=== PATIENT | female | born 1950 | race Caucasian/White ===

== ENCOUNTER 2018-10-29 03:15 | Emergency (ER) | payer MEDICARE ==
--- NOTE | 2018-10-29 04:02 | XR ---
EXAM: XR Chest, 2 Views CLINICAL HISTORY: ITS.REASON XR Reason: Pain TECHNIQUE: Frontal and lateral views of the chest. COMPARISON: No relevant prior studies available. FINDINGS: Lungs: Small opacity in the left lower lobe. Pleural space: No effusion. Heart: No cardiomegaly. Mediastinum: Unremarkable. Bones/joints: No acute findings. IMPRESSION: Small opacity in the left lower lobe, possibly aspiration or atelectasis.
[2018-10-29] MEDS ORDERED: cefTRIAXone 1,000 MG VIAL (IM USE) IM STA (04:18)
[2018-10-29] MEDS ORDERED: ALBUTEROL NEBULIZED 2.5 MG/3 ML INHALATION STA (04:23)
--- NOTE | 2018-10-29 04:23 | ED ---
URI HPI - General Chief Complaint: Upper Respiratory Infection Stated Complaint: Cough/URI Time Seen by Provider: 10/29/18 03:39 Source: patient, family Mode of arrival: wheelchair Limitations: no limitations - History of Present Illness MD Complaint: fever, cough, nasal congestion Onset/Timin -: days(s) Severity: moderate Consistency: constant Improves With: nothing Treatments Prior to Arrival: "cold medicine", antibiotics - Related Data Previous Rx's Medication Instructions Recorded Amoxicillin 875 mg PO Q12HR #14 tablet 10/29/18 Allergies Allergy/AdvReac Type Severity Reaction Status Date / Time No Known Allergies Allergy Verified 10/29/18 03:27 Review of Systems ROS Statement: Those systems with pertinent positive or pertinent negative responses have been documented in the HPI. ROS Other: All systems not noted in ROS Statement are negative. Constitutional: Reports: fever. Denies: chills Respiratory: Reports: cough, wheezes. Denies: dyspnea, hemoptysis Cardiovascular: Denies: chest pain, palpitations, syncope Gastrointestinal: Denies: abdominal pain, vomiting, diarrhea Genitourinary: Denies: dysuria, hematuria Musculoskeletal: Denies: back pain Skin: Denies: rash Neurological: Denies: headache, weakness Past Medical History Past Medical History: No Reported History, Cancer Additional Past Medical History / Comment(s): uterine CA 2006 History of Any Multi-Drug Resistant Organisms: None Reported Past Surgical History: Cholecystectomy, Hernia Repair, Hysterectomy Smoking Status: Never smoker Past Alcohol Use History: Occasional Past Drug Use History: None Reported General Exam Limitations: no limitations General appearance: alert, in no apparent distress Head exam: Present: atraumatic, normocephalic Eye exam: Present: normal appearance. Absent: scleral icterus, conjunctival injection ENT exam: Present: normal oropharynx Respiratory exam: Present: normal lung sounds bilaterally, wheezes. Absent: respiratory distress, rales, rhonchi, stridor Cardiovascular Exam: Present: regular rate, normal rhythm, normal heart sounds. Absent: systolic murmur, diastolic murmur, rubs, gallop GI/Abdominal exam: Present: soft. Absent: distended, tenderness, guarding, rebound, rigid Extremities exam: Present: normal inspection, normal capillary refill. Absent: pedal edema, calf tenderness Neurological exam: Present: alert Skin exam: Present: warm, dry, intact, normal color. Absent: rash Course Vital Signs 10/29/18 10/29/18 10/29/18 03:20 03:38 04:33 Temperature 101.3 F H Pulse Rate 78 73 Respiratory 18 20 16 Rate Blood Pressure 141/78 O2 Sat by Pulse 97 Oximetry 10/29/18 10/29/18 04:40 05:52 Temperature 99.9 F H Pulse Rate 75 68 Respiratory 16 19 Rate Blood Pressure 134/60 O2 Sat by Pulse 95 Oximetry Disposition Clinical Impression: Pneumonia Disposition: HOME SELF-CARE Condition: Fair Instructions (If sedation given, give patient instructions): Pneumonia (ED) Prescriptions: Amoxicillin 875 mg PO Q12HR #14 tablet Is patient prescribed a controlled substance at d/c from ED?: No Referrals: Dank Damon MD [Primary Care Provider] - 1-2 days
[2018-10-29] MEDS ORDERED: ACETAMINOPHEN TAB 325 MG TAB PO STA (04:28)
[2018-10-29] MEDS ORDERED: IBUPROFEN 600 MG TAB PO STA (04:29)
[2018-10-29 05:52] VITALS: BP 134/60; PULSE 68; RESP 19; TEMP 99.9
== END 2018-10-29 07:01 | disposition home or self-care (01) ==
LOC: EC 03:15
DX: J18.9 Pneumonia, unspecified organism (principal); Z85.42 Personal history of malignant neoplasm of other parts of uterus
CPT/HCPCS: 94640; 71046; 99283; 96372; J0696

== ENCOUNTER 2019-04-02 12:44 | Inpatient (IN) | payer MEDICARE ==
[2019-04-02] MEDS ORDERED: SODIUM CHLORIDE 0.9% 1,000 ML IV STA (13:28)
[2019-04-02] MEDS ORDERED: KETOROLAC 30 MG/ML 1 ML VIAL IVP STA (13:39)
[2019-04-02 13:58] LABS: Basophils # (A) 0.1 k/uL (0-0.2); Basophils % (A) 0 %; Eosinophils # (A) 0.2 k/uL (0-0.7); Eosinophils % (A) 1 %; HGB 14.6 gm/dL (11.4-16.0); Lymphocytes # (A) 1.2 k/uL (1.0-4.8); Lymphocytes % (A) 7 %; MCH 33.1 pg (25.0-35.0); MCHC 33.1 g/dL (31.0-37.0); MCV 99.9 fL (80.0-100.0); Mean Platelet Volume 6.4; Monocytes # (A) 0.5 k/uL (0-1.0); Monocytes % (A) 3 %; Neutrophils # (A) 14.1 k/uL (1.3-7.7); Neutrophils % (A) 88 %; Platelet Count 293 k/uL (150-450); RBC 4.41 m/uL (3.80-5.40); WBC 16.1 k/uL (3.8-10.6)
[2019-04-02 14:00] LABS: Appearance,Urine Cloudy (Clear); Bacteria,Urine Occasional /hpf; Bilirubin,Urine Negative (Negative); Blood,Urine Negative (Negative); Color,Urine Yellow; Glucose,Urine (UA) Negative (Negative); Ketones,Urine Negative (Negative); Leukocyte Esterase,Urine Negative (Negative); Mucus,Urine Rare /hpf; Nitrite,Urine Negative (Negative); PH, Urine 6.5 (5.0-8.0); Protein,Urine Negative (Negative); Specific Gravity,Urine 1.017 (1.001-1.035); Squamous Epithelial Cell,Urine 1 /hpf (0-4); Urobilinogen,Urine <2.0 mg/dL (<2.0)
--- NOTE | 2019-04-02 14:01 | ED ---
Abdominal Pain HPI - General Chief Complaint: Abdominal Pain Stated Complaint: Side pain Time Seen by Provider: 04/02/19 13:11 Source: patient, RN notes reviewed Mode of arrival: ambulatory Limitations: no limitations - History of Present Illness Initial Comments: This is a 60-year-old female presents emergency Department chief complaint of abdominal pain. Patient states his started around midnight last night. Patient states pain is progressively is on her right side of her abdomen. Patient denies that she had a fever though she has a temporal 100.3 in emergency department. Patient states that she's had a prior cholecystectomy, hysterectomy and hernia repair with mesh. Patient denies any flank pain or dysuria no hematuria denies any diarrhea or constipation issues denies chest pain, shortness breath, URI symptoms - Related Data Previous Rx's Medication Instructions Recorded Amoxicillin 875 mg PO Q12HR #14 tablet 10/29/18 Allergies Allergy/AdvReac Type Severity Reaction Status Date / Time No Known Allergies Allergy Verified 04/02/19 13:03 Review of Systems ROS Statement: Those systems with pertinent positive or pertinent negative responses have been documented in the HPI. ROS Other: All systems not noted in ROS Statement are negative. Past Medical History Past Medical History: No Reported History, Cancer Additional Past Medical History / Comment(s): uterine CA 2006 History of Any Multi-Drug Resistant Organisms: None Reported Past Surgical History: Cholecystectomy, Hernia Repair, Hysterectomy Smoking Status: Never smoker Past Alcohol Use History: Occasional Past Drug Use History: None Reported General Exam Limitations: no limitations General appearance: alert, in no apparent distress Head exam: Present: atraumatic, normocephalic, normal inspection Eye exam: Present: normal appearance, PERRL, EOMI. Absent: scleral icterus, conjunctival injection, periorbital swelling ENT exam: Present: normal exam, normal oropharynx, mucous membranes moist Neck exam: Present: normal inspection, full ROM. Absent: tenderness, meningismus, lymphadenopathy Respiratory exam: Present: normal lung sounds bilaterally. Absent: respiratory distress, wheezes, rales, rhonchi, stridor Cardiovascular Exam: Present: regular rate, normal rhythm, normal heart sounds. Absent: systolic murmur, diastolic murmur, rubs, gallop, clicks GI/Abdominal exam: Present: soft, tenderness (Moderate right-sided), normal bowel sounds. Absent: distended, guarding, rebound, rigid Back exam: Absent: CVA tenderness (R), CVA tenderness (L) Neurological exam: Present: alert, oriented X3 Skin exam: Present: warm, dry, intact, normal color. Absent: rash Course Vital Signs 04/02/19 13:07 Temperature 100.3 F H Pulse Rate 84 Respiratory 16 Rate Blood Pressure 156/85 O2 Sat by Pulse 98 Oximetry Medical Decision Making - Medical Decision Making CT shows evidence of diverticulitis in the hepatic flexure. Patient has a fever, leukocytosis. Patient will be admitted for diverticulitis possible sepsis. Patient will be placed on Levaquin and Flagyl. He is discussed with Dr. Corey admitting physician. - Lab Data Result diagrams: 04/02/19 13:45 04/02/19 13:45 Lab Results 04/02/19 04/02/19 04/02/19 Range/Units 13:45 13:45 13:45 WBC 16.1 H (3.8-10.6) k/uL RBC 4.41 (3.80-5.40) m/uL Hgb 14.6 (11.4-16.0) gm/dL Hct 44.0 (34.0-46.0) % MCV 99.9 (80.0-100.0) fL MCH 33.1 (25.0-35.0) pg MCHC 33.1 (31.0-37.0) g/dL RDW 13.0 (11.5-15.5) % Plt Count 293 (150-450) k/uL Neutrophils % 88 % Lymphocytes % 7 % Monocytes % 3 % Eosinophils % 1 % Basophils % 0 % Neutrophils # 14.1 H (1.3-7.7) k/uL Lymphocytes # 1.2 (1.0-4.8) k/uL Monocytes # 0.5 (0-1.0) k/uL Eosinophils # 0.2 (0-0.7) k/uL Basophils # 0.1 (0-0.2) k/uL Sodium 136 L (137-145) mmol/L Potassium 4.0 (3.5-5.1) mmol/L Chloride 101 (98-107) mmol/L Carbon Dioxide 27 (22-30) mmol/L Anion Gap 8 mmol/L BUN 11 (7-17) mg/dL Creatinine 0.68 (0.52-1.04) mg/dL Est GFR (CKD-EPI)AfAm >90 (>60 ml/min/1.73 sqM) Est GFR (CKD-EPI)NonAf >90 (>60 ml/min/1.73 sqM) Glucose 135 H (74-99) mg/dL Plasma Lactic Acid Sherif 1.3 (0.7-2.0) mmol/L Calcium 9.4 (8.4-10.2) mg/dL Total Bilirubin 1.3 (0.2-1.3) mg/dL AST 26 (14-36) U/L ALT 31 (9-52) U/L Alkaline Phosphatase 88 (38-126) U/L Total Protein 7.4 (6.3-8.2) g/dL Albumin 3.9 (3.5-5.0) g/dL Amylase 33 (30-110) U/L Lipase 63 (23-300) U/L Urine Color Urine Appearance (Clear) Urine pH (5.0-8.0) Ur Specific [place] (1.001-1.035) Urine Protein (Negative) Urine Glucose (UA) (Negative) Urine Ketones (Negative) Urine Blood (Negative) Urine Nitrite (Negative) Urine Bilirubin (Negative) Urine Urobilinogen (<2.0) mg/dL Ur Leukocyte Esterase (Negative) Urine WBC (0-5) /hpf Ur Squamous Epith Cells (0-4) /hpf Urine Bacteria (None) /hpf Urine Mucus (None) /hpf 04/02/19 Range/Units 13:45 WBC (3.8-10.6) k/uL RBC (3.80-5.40) m/uL Hgb (11.4-16.0) gm/dL Hct (34.0-46.0) % MCV (80.0-100.0) fL MCH (25.0-35.0) pg MCHC (31.0-37.0) g/dL RDW (11.5-15.5) % Plt Count (150-450) k/uL Neutrophils % % Lymphocytes % % Monocytes % % Eosinophils % % Basophils % % Neutrophils # (1.3-7.7) k/uL Lymphocytes # (1.0-4.8) k/uL Monocytes # (0-1.0) k/uL Eosinophils # (0-0.7) k/uL Basophils # (0-0.2) k/uL Sodium (137-145) mmol/L Potassium (3.5-5.1) mmol/L Chloride (98-107) mmol/L Carbon Dioxide (22-30) mmol/L Anion Gap mmol/L BUN (7-17) mg/dL Creatinine (0.52-1.04) mg/dL Est GFR (CKD-EPI)AfAm (>60 ml/min/1.73 sqM) Est GFR (CKD-EPI)NonAf (>60 ml/min/1.73 sqM) Glucose (74-99) mg/dL Plasma Lactic Acid Sherif (0.7-2.0) mmol/L Calcium (8.4-10.2) mg/dL Total Bilirubin (0.2-1.3) mg/dL AST (14-36) U/L ALT (9-52) U/L Alkaline Phosphatase (38-126) U/L Total Protein (6.3-8.2) g/dL Albumin (3.5-5.0) g/dL Amylase (30-110) U/L Lipase (23-300) U/L Urine Color Yellow Urine Appearance Cloudy H (Clear) Urine pH 6.5 (5.0-8.0) Ur Specific [place] 1.017 (1.001-1.035) Urine Protein Negative (Negative) Urine Glucose (UA) Negative (Negative) Urine Ketones Negative (Negative) Urine Blood Negative (Negative) Urine Nitrite Negative (Negative) Urine Bilirubin Negative (Negative) Urine Urobilinogen <2.0 (<2.0) mg/dL Ur Leukocyte Esterase Negative (Negative) Urine WBC 3 (0-5) /hpf Ur Squamous Epith Cells 1 (0-4) /hpf Urine Bacteria Occasional H (None) /hpf Urine Mucus Rare H (None) /hpf Disposition Clinical Impression: Acute diverticulitis Disposition: ADMITTED IP TO THIS [facility] Condition: Fair Referrals: Dank Damon MD [Primary Care Provider] - 1-2 days
[2019-04-02 14:08] LABS: ALT 31 U/L (9-52); AST 26 U/L (14-36); African American GFR (CKD) >90 (>60 ml/min/1.73 sqM); Albumin 3.9 g/dL (3.5-5.0); Alkaline Phosphatase 88 U/L (38-126); Amylase 33 U/L (30-110); Anion Gap 8 mmol/L; Blood Urea Nitrogen 11 mg/dL (7-17); Calcium 9.4 mg/dL (8.4-10.2); Carbon Dioxide 27 mmol/L (22-30); Chloride 101 mmol/L (98-107); Glucose 135 mg/dL (74-99); Sodium 136 mmol/L (137-145); Total Bilirubin 1.3 mg/dL (0.2-1.3); Total Protein 7.4 g/dL (6.3-8.2)
--- NOTE | 2019-04-02 15:04 | CT ---
EXAMINATION TYPE: CT abdomen pelvis w con DATE OF EXAM: 04/02/2019 COMPARISON: None HISTORY: RLQ pain with nausea and fever. CT DLP: 2996.7 mGycm Automated exposure control for dose reduction was used. TECHNIQUE: Helical acquisition of images was performed from the lung bases through the pelvis. CONTRAST: Performed without Oral Contrast and with IV Contrast, patient injected with 100 mL of Isovue 300. FINDINGS: Lung bases are clear of consolidation. There is minimal subsegmental atelectasis at the left lung bas e. There is no pleural effusion. There is some fatty infiltration of the liver. There is calcification that measures 1.5 cm superior r ight lobe of the liver that could be a granuloma. Spleen is intact. Stomach is intact. There is no ev idence of pancreatic mass. There are clips from cholecystectomy. There is no adrenal mass. Kidneys have normal size and contour. There is no hydronephrosis. Ureters a re not dilated. Bladder distends smoothly. There is moderate fat stranding in the right upper quadrant at the hepatic flexure of the colon. Ther e are numerous diverticula throughout the colon including the hepatic flexure. The terminal ileum appears normal. Appendix is not definitely seen. There is no sign of thickened vamshi endix. There is no evidence of free air. There is no free fluid in the pelvis. Lumbar spine is intact. Bony pelvis appears intact. IMPRESSION: MODERATE INFLAMMATORY CHANGES IN THE RIGHT UPPER QUADRANT AT THE HEPATIC FLEXURE CONSISTENT WITH DIVE RTICULITIS. Appendix not seen.
[2019-04-02] MEDS ORDERED: NALOXONE 0.4 MG/ML 1 ML VIAL IV PRN (15:36)
[2019-04-02] MEDS ORDERED: ONDANSETRON 4 MG/2 ML VIAL IVP PRN (15:36)
[2019-04-02] MEDS ORDERED: LEVOFLOXACIN 750MG-D5W PMX 750 MG in DEXTROSE/WATER 1 150ML.BAG IVPB STA (15:37)
[2019-04-02] MEDS ORDERED: metroNIDAZOLE-NS PMX 500 MG in SALINE 1 100ML.BAG IVPB STA (15:37)
[2019-04-02] MEDS: HYDROcodone/APAP 5-325MG 1 EACH TAB PO PRN (16:37)
[2019-04-02] MEDS: SODIUM CHLORIDE 0.9% 1,000 ML IV SCH (19:40)
[2019-04-02] MEDS: KETOROLAC 30 MG/ML 1 ML VIAL IVP PRN (19:42)
--- NOTE | 2019-04-02 21:20 | P.HPIM ---
History of Present Illness H&P Date: 04/02/19 Chief Complaint: Abdominal pain History of presenting complaint: This is a very pleasant 68-year-old patient who follows with Dr. Renae. She is otherwise remarkably good health. Last night she had gone to the bathroom then started noticing some right-sided abdominal pain. She slowly progressed to get much worse. Does some nausea and some chills present. She is not sure if there was any fever. Patient normally is to 3 bowel movements a day. Patient continued to get worse and the surgical complaint ear. Computed tomography scan did show hepatic flexure diverticulitis. Admitted for the same. Has not had any endoscopy previously. Review of systems: GEN.: Tired with chills EYES: None HEENT: None NECK: None RESPIRATORY: None CARDIOVASCULAR: None GASTROINTESTINAL: As above GENITOURINARY: None MUSCULOSKELETAL: None LYMPHATICS: None HEMATOLOGICAL: None PSYCHIATRY: None NEUROLOGICAL: None Social history: Does not smoke. Alcohol occasionally. Lives with fianc. 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 Physical examination: VITAL SIGNS: 100.3, 84, 16, 156/85, 98% room GENERAL: BMI 15), laying in bed not in distress. EYES: Pupils equal. Conjunctiva normal. HEENT: External appearance of nose and ears normal, oral cavity grossly normal. NECK: JVD not raised; masses not palpable. HEART: First and second heart sounds are normal; no edema. LUNGS: Respiratory rate normal; distant breath sounds. ABDOMEN: Soft, right-sided tenderness. No guarding [place], liver spleen not palpable, no masses palpable. PSYCH: Alert and oriented x3; mood and affect normal. NEUROLOGICAL: Cranial nerves grossly intact; no facial asymmetry, power and sensation grossly intact. LYMPHATICS: No lymph nodes palpable in the axilla and neck INVESTIGATIONS, reviewed in the clinical context: Computed tomography scan of the abdomen-fatty infiltration of liver, moderate fat stranding in the right upper quadrant of the hepatic flexure of the colon, numerous diverticula throughout the colon Assessment: -Acute diverticulitis in the hepatic flexure -Diffuse colonic diverticulosis -Morbid obesity BMI 59.9 Plan: Patient started on IV Flagyl. We'll set IV cefepime. Lovenox for DVT prophylaxis. IV fluids. Patient allowed ice chips. General surgery was consulted. Care was discussed with the patient question were answered. Past Medical History Past Medical History: No Reported History, Cancer Additional Past Medical History / Comment(s): Uterine CA 2005, broke left leg and has a plate in it in 1994 History of Any Multi-Drug Resistant Organisms: None Reported Past Surgical History: Cholecystectomy, Hernia Repair, Hysterectomy, Orthopedic Surgery Additional Past Surgical History / Comment(s): Left lower leg surgery with metal plate Past Anesthesia/Blood Transfusion Reactions: No Reported Reaction Past Psychological History: No Psychological Hx Reported Additional Psychological History / Comment(s): Patient lives with floyd, lives in own home in [facility]. No stairs. Has no pets. Smoking Status: Never smoker Past Alcohol Use History: Occasional Additional Past Alcohol Use History / Comment(s): Once a month Past Drug Use History: None Reported - Past Family History Mother History Unknown: Yes Additional Family Medical History / Comment(s): Asthma, bladder disease Medications and Allergies Home Medications Medication Instructions Recorded Confirmed Type Naproxen Sodium [Aleve] 440 mg PO Q12H PRN 04/02/19 04/02/19 History Allergies Allergy/AdvReac Type Severity Reaction Status Date / Time No Known Allergies Allergy Verified 04/02/19 15:59 Physical Exam Vitals: Vital Signs Temp Pulse Pulse Resp BP BP Pulse Ox 04/02/19 19:47 98.0 F 71 19 128/59 97 04/02/19 18:57 99.3 F 71 17 126/74 100 04/02/19 17:58 98.8 F 76 16 137/57 97 04/02/19 15:10 98.9 F 89 18 127/89 96 04/02/19 13:07 100.3 F H 84 16 156/85 98 Intake and Output 04/02/19 04/02/19 04/02/19 06:59 14:59 22:59 Other: Weight 153.314 kg Results CBC & Chem 7: 04/02/19 13:45 04/02/19 13:45 Labs: Abnormal Lab Results - Last 24 Hours (Table) 04/02/19 04/02/19 04/02/19 Range/Units 13:45 13:45 13:45 WBC 16.1 H (3.8-10.6) k/uL Neutrophils # 14.1 H (1.3-7.7) k/uL Sodium 136 L (137-145) mmol/L Glucose 135 H (74-99) mg/dL Urine Appearance Cloudy H (Clear) Urine Bacteria Occasional H (None) /hpf Urine Mucus Rare H (None) /hpf Thrombosis Risk Factor Assmnt - Choose All That Apply Each Factor Represents 1 point: Obesity (BMI >25), Swollen legs (current) Each Risk Factor Represents 2 Points: Age 61-74 years Other congenital or acquired thrombophilia - If yes, enter type in comment: No Thrombosis Risk Factor Assessment Total Risk Factor Score: 4 Thrombosis Risk Factor Assessment Level: Moderate Risk
[2019-04-02] MEDS: ENOXAPARIN 40 MG/0.4 ML SYRINGE SQ SCH (21:48)
[2019-04-03] MEDS: metroNIDAZOLE-NS PMX 500 MG in SALINE 1 100ML.BAG IVPB SCH ×4 (01:29→23:26)
[2019-04-03] MEDS: SODIUM CHLORIDE 0.9% 1,000 ML IV SCH ×2 (04:34→07:38)
[2019-04-03] MEDS: HYDROcodone/APAP 5-325MG 1 EACH TAB PO PRN (05:54)
[2019-04-03] MEDS: ENOXAPARIN 40 MG/0.4 ML SYRINGE SQ SCH (07:37)
[2019-04-03] MEDS ORDERED: CEFEPIME 2 GM in SODIUM CHLORIDE 0.9% 100 ML IVPB SCH (09:00)
--- NOTE | 2019-04-03 10:32 | P.GSCN ---
<Ayesha Linares A - Last Filed: 04/03/19 10:29> History of Present Illness Consult date: 04/03/19 Reason for Consult: Diverticulitis Requesting physician: Charles Petersen History of present illness: CHIEF COMPLAINT: Abdominal pain HISTORY OF PRESENT ILLNESS: 60-year-old female who presented to the emergency room with a chief complaint of abdominal pain. She reports right upper quadrant abdominal pain over the last 1-2 days prior to coming to the hospital. She reports pain was located in the right upper quadrant. She denies having this type of pain before. She denies previous history of diverticulitis. She does have a family history of diverticulitis as her father underwent surgery and required a colostomy. PAST MEDICAL HISTORY: See list. PAST SURGICAL HISTORY: See list. MEDICATIONS: See list. ALLERGIES: See list. SOCIAL HISTORY: No illicit drug use. REVIEW OF SYSTEMS: CONSTITUTIONAL: Denies fever or chills. HEENT: Denies blurred vision, vision changes, or eye pain. Denies hemoptysis ENDOCRINE: Denies heat or cold intolerance. CARDIOVASCULAR: Denies chest pain or pressure. RESPIRATORY: No shortness of breath. GASTROINTESTINAL: See HPI for pertinent findings NEURO: Denies history of seizures. PSYCH: No depression or suicidal ideation HEMATOLOGIC: Denies bleeding disorders. LYMPHATIC: The patient denies any lumps and bumps around the neck. GENITOURINARY: Denies any blood in urine or increased urinary frequency. MUSCULOSKELETAL: Denies myalgias. Denies joint swelling. Denies decreased range of motion beyond patients baseline. SKIN: Denies pruitis. Denies rash. PHYSICAL EXAM: VITAL SIGNS: Reviewed GENERAL: Well-developed in no acute distress. HEENT: No sclera icterus. Extraocular movements grossly intact. Moist buccal mucosa. Head is atraumatic, normocephalic. Hears conversational speech. No nasal drain age. NECK: Supple without lymphadenopathy. CHEST: Non-labored respirations and equal bilateral excursions. CARDIOVASCULAR: Regular rate with regular rhythm. Palpable 2+ radial pulses. ABDOMEN: Obese. Soft. Nondistended. Nontender. Positive bowel sounds. No peritoneal signs. MUSCULOSKELETAL: No clubbing, cyanosis or edema. NEUROLOGIC: No focal or lateralizing signs. Cranial nerves II through XII grossly intact. PSYCH: Appropriate affect. Alert and oriented to person, place and time. SKIN: Well perfused. Good skin turgor. LABORATORY DATA: WBC 16.1. Hemoglobin 14.6. Platelet count 293. Bilirubin 1.3. AST 26. ALT 31. Alkaline phosphatase 88. IMAGING: CT abdomen and pelvis: Moderate inflammatory changes in the right upper quadrant at the hepatic flexure consistent with diverticulitis. ASSESSMENT: 1. Abdominal pain 2. Acute diverticulitis of right upper quadrant at hepatic flexure 3. Family history of diverticulitis PLAN: 1. Advance diet to full liquids 2. Continue antibiotics. Change antibiotic to Zosyn. Continue Flagyl. Monitor WBC. 3. Consult dietitian for diverticulitis education 4. No immediate surgical intervention recommended Nurse practitioner note has been reviewed by physician. Signing provider agrees with the documented findings, assessment, and plan of care. Past Medical History Past Medical History: No Reported History, Cancer Additional Past Medical History / Comment(s): Uterine CA 2005, broke left leg and has a plate in it in 1994 History of Any Multi-Drug Resistant Organisms: None Reported Past Surgical History: Cholecystectomy, Hernia Repair, Hysterectomy, Orthopedic Surgery Additional Past Surgical History / Comment(s): Left lower leg surgery with metal plate Past Anesthesia/Blood Transfusion Reactions: No Reported Reaction Past Psychological History: No Psychological Hx Reported Additional Psychological History / Comment(s): Patient lives with fiance, lives in own home in [facility]. No stairs. Has no pets. Smoking Status: Never smoker Past Alcohol Use History: Occasional Additional Past Alcohol Use History / Comment(s): Once a month Past Drug Use History: None Reported - Past Family History Mother History Unknown: Yes Additional Family Medical History / Comment(s): Asthma, bladder disease Medications and Allergies Home Medications Medication Instructions Recorded Confirmed Type Naproxen Sodium [Aleve] 440 mg PO Q12H PRN 04/02/19 04/02/19 History Acetaminophen Tab [Tylenol] 650 mg PO Q4HR PRN tab 04/04/19 Rx Ciprofloxacin HCl [Cipro] 500 mg PO Q12HR #14 tablet 04/04/19 Rx metroNIDAZOLE [Flagyl] 500 mg PO TID #21 tab 04/04/19 Rx Allergies Allergy/AdvReac Type Severity Reaction Status Date / Time No Known Allergies Allergy Verified 04/02/19 15:59 Surgical - Exam Vital Signs Temp Pulse Resp BP Pulse Ox 100.3 F H 84 16 156/85 98 04/02/19 13:07 04/02/19 13:07 04/02/19 13:07 04/02/19 13:07 04/02/19 13:07 Results - Labs 04/02/19 13:45 04/02/19 13:45 Abnormal Lab Results - Last 24 Hours (Table) 04/02/19 04/02/19 04/02/19 Range/Units 13:45 13:45 13:45 WBC 16.1 H (3.8-10.6) k/uL Neutrophils # 14.1 H (1.3-7.7) k/uL Sodium 136 L (137-145) mmol/L Glucose 135 H (74-99) mg/dL Urine Appearance Cloudy H (Clear) Urine Bacteria Occasional H (None) /hpf Urine Mucus Rare H (None) /hpf Diabetes panel 04/02/19 Range/Units 13:45 Sodium 136 L (137-145) mmol/L Potassium 4.0 (3.5-5.1) mmol/L Chloride 101 (98-107) mmol/L Carbon Dioxide 27 (22-30) mmol/L BUN 11 (7-17) mg/dL Creatinine 0.68 (0.52-1.04) mg/dL Glucose 135 H (74-99) mg/dL Calcium 9.4 (8.4-10.2) mg/dL AST 26 (14-36) U/L ALT 31 (9-52) U/L Alkaline Phosphatase 88 (38-126) U/L Total Protein 7.4 (6.3-8.2) g/dL Albumin 3.9 (3.5-5.0) g/dL Calcium panel 04/02/19 Range/Units 13:45 Calcium 9.4 (8.4-10.2) mg/dL Albumin 3.9 (3.5-5.0) g/dL Pituitary panel 04/02/19 Range/Units 13:45 Sodium 136 L (137-145) mmol/L Potassium 4.0 (3.5-5.1) mmol/L Chloride 101 (98-107) mmol/L Carbon Dioxide 27 (22-30) mmol/L BUN 11 (7-17) mg/dL Creatinine 0.68 (0.52-1.04) mg/dL Glucose 135 H (74-99) mg/dL Calcium 9.4 (8.4-10.2) mg/dL Adrenal panel 04/02/19 Range/Units 13:45 Sodium 136 L (137-145) mmol/L Potassium 4.0 (3.5-5.1) mmol/L Chloride 101 (98-107) mmol/L Carbon Dioxide 27 (22-30) mmol/L BUN 11 (7-17) mg/dL Creatinine 0.68 (0.52-1.04) mg/dL Glucose 135 H (74-99) mg/dL Calcium 9.4 (8.4-10.2) mg/dL Total Bilirubin 1.3 (0.2-1.3) mg/dL AST 26 (14-36) U/L ALT 31 (9-52) U/L Alkaline Phosphatase 88 (38-126) U/L Total Protein 7.4 (6.3-8.2) g/dL Albumin 3.9 (3.5-5.0) g/dL <Wendy Perez N - Last Filed: 04/06/19 17:26> History of Present Illness History of present illness: Patient seen and evaluated. Clinically stable. No acute surgical intervention at this time. Antibiotic adjusted for broader spectrum of antibiotic care Surgical - Exam Vital Signs Temp Pulse Resp BP Pulse Ox 100.3 F H 84 16 156/85 98 04/02/19 13:07 04/02/19 13:07 04/02/19 13:07 04/02/19 13:07 04/02/19 13:07 Results - Labs 04/04/19 07:23 04/02/19 13:45 Microbiology - Last 24 Hours (Table) 04/02/19 13:45 Blood Culture - Preliminary Blood No Growth after 96 hours
[2019-04-03] MEDS: KETOROLAC 30 MG/ML 1 ML VIAL IVP PRN (10:40)
[2019-04-03 11:18] LABS: HCT 40.4 % (34.0-46.0); MCH 32.7 pg (25.0-35.0); MCHC 32.2 g/dL (31.0-37.0); MCV 101.5 fL (80.0-100.0); Macrocytosis Slight; Platelet Count 240 k/uL (150-450); RBC 3.97 m/uL (3.80-5.40); WBC 11.2 k/uL (3.8-10.6)
[2019-04-03] MEDS ORDERED: KETOROLAC 30 MG/ML 1 ML VIAL IVP PRN (11:25)
[2019-04-03] MEDS ORDERED: ACETAMINOPHEN TAB 325 MG TAB PO PRN (11:27)
[2019-04-03] MEDS ORDERED: LEVOFLOXACIN 750MG-D5W PMX 750 MG in DEXTROSE/WATER 1 150ML.BAG IVPB SCH (15:00)
[2019-04-03 16:49] VITALS: BMI 59.8
[2019-04-03] MEDS: PIPERACILLIN-TAZOBACTAM 3.375 GM in SODIUM CHLORIDE 0.9% 100 ML IVPB SCH (17:07)
--- NOTE | 2019-04-03 22:33 | P.PN ---
Progress Note - Text Progress Note Date: 04/03/19 Chief Complaint: Abdominal pain History of presenting complaint: This is a very pleasant 68-year-old patient who follows with Dr. Renae. She is otherwise remarkably good health. Last night she had gone to the bathroom then started noticing some right-sided abdominal pain. She slowly progressed to get much worse. Does some nausea and some chills present. She is not sure if there was any fever. Patient normally is to 3 bowel movements a day. Patient continued to get worse and the surgical complaint ear. Computed tomography scan did show hepatic flexure diverticulitis. Admitted for the same. Has not had any endoscopy previously. Admitted with right hepatic flexure diverticulitis Today-laying in bed. Did tolerate clear liquids. Had one bowel movement. Abdominal pain is about 25% better. No nausea vomiting. No fever. Review of systems: Was done for constitutional, cardiovascular, GI, pulmonary. relevant finding as above Active Medications Acetaminophen (Tylenol Tab) 650 mg PO Q4HR PRN PRN Reason: Fever and/ or Pain Hydrocodone Bitart/Acetaminophen (Lloyd 5-325) 1 each PO Q4HR PRN PRN Reason: Moderate Pain Last Admin: 04/03/19 05:54 Dose: 1 each Documented by: Enoxaparin Sodium (Lovenox) 40 mg SQ DAILY PENDING SALE TO [facility] Last Admin: 04/03/19 07:37 Dose: 40 mg Documented by: Sodium Chloride (Saline 0.9%) 1,000 mls @ 10 mls/hr IV .Q24H PENDING SALE TO [facility] Last Admin: 04/03/19 07:38 Dose: 75 mls/hr Documented by: Metronidazole 500 mg/ IV (Solution) 100 mls @ 100 mls/hr IVPB Q8HR PENDING SALE TO [facility] Last Admin: 04/03/19 15:54 Dose: 100 mls/hr Documented by: Piperacillin Sod/Tazobactam (Sod 3.375 gm/ Sodium Chloride) 100 mls @ 25 mls/hr IVPB Q8HR PENDING SALE TO [facility] Last Admin: 04/03/19 17:07 Dose: 25 mls/hr Documented by: Ketorolac Tromethamine (Toradol) 15 mg IVP Q6HR PRN PRN Reason: Severe Pain Stop: 04/07/19 15:37 Naloxone HCl (Narcan) 0.2 mg IV Q2M PRN PRN Reason: Opioid Reversal Ondansetron HCl (Zofran) 4 mg IVP Q8HR PRN PRN Reason: Nausea And Vomiting Last Admin: 04/03/19 16:58 Dose: 4 mg Documented by: Physical examination: VITAL SIGNS: 98.6, 74, 20, 11 , 96% room air GENERAL: Laying in bed, comfortable. EYES: Pupils equal. Conjunctiva normal. HEENT: External appearance of nose and ears normal, oral cavity grossly normal. NECK: JVD not raised; masses not palpable. HEART: First and second heart sounds are normal; no edema. LUNGS: Respiratory rate normal; distant breath sounds. ABDOMEN: Soft, decreased right-sided tenderness. No guarding or rigidity, liver spleen not palpable, no masses palpable. PSYCH: Alert and oriented x3; mood and affect normal. INVESTIGATIONS, reviewed in the clinical context: Computed tomography scan of the abdomen-fatty infiltration of liver, moderate fat stranding in the right upper quadrant of the hepatic flexure of the colon, numerous diverticula throughout the colon Assessment: -Acute diverticulitis in the hepatic flexure -Diffuse colonic diverticulosis -Morbid obesity BMI 59.9 Plan: -Surgery change antibiotic to IV Zosyn. Which is a very similar coverage to IV cefepime. Care was discussed with the patient. Encouraged to be out of bed. Patient be advanced to full liquid diet.
[2019-04-04] MEDS: PIPERACILLIN-TAZOBACTAM 3.375 GM in SODIUM CHLORIDE 0.9% 100 ML IVPB SCH ×2 (00:51→08:58)
[2019-04-04] MEDS: SODIUM CHLORIDE 0.9% 1,000 ML IV SCH (07:10)
[2019-04-04] MEDS: metroNIDAZOLE-NS PMX 500 MG in SALINE 1 100ML.BAG IVPB SCH (07:10)
[2019-04-04 07:53] LABS: HCT 39.7 % (34.0-46.0); HGB 12.8 gm/dL (11.4-16.0); MCH 32.4 pg (25.0-35.0); MCHC 32.3 g/dL (31.0-37.0); MCV 100.5 fL (80.0-100.0); Mean Platelet Volume 6.4; Platelet Count 249 k/uL (150-450); RBC 3.95 m/uL (3.80-5.40); WBC 8.5 k/uL (3.8-10.6)
[2019-04-04] MEDS: ENOXAPARIN 40 MG/0.4 ML SYRINGE SQ SCH (08:57)
[2019-04-04 09:05] VITALS: BP 136/84; PULSE 73; RESP 18; TEMP 98.3
--- NOTE | 2019-04-04 12:15 | CDI ---
Documentation Clarification Form Date: 04/04/2019 11:57:49 AM From: Vijaya Garrido RN CCDS Admit Date: 04/02/2019 3:36:00 PM Patient Name: Joan Conte Visit Number: [id number] Discharge Date: ATTENTION: The Clinical Documentation Specialists (CDI) and [facility] Coding Staff appreciate your assistance in clarifying documentation. Please respond to the clarification below the line at the bottom and electronically sign. The CDI & [facility] Coding staff will review the response and follow-up if needed. Please note: Queries are made part of the Legal Health Record. If you have any questions, please contact the author of this message via ITS. Dr. Bjorn Corey Patient will be admitted for diverticulitis possible sepsis. has been documented in the ED report 04/02/2019 History/Risk Factors: 68-year-old female presents to the ED with abdominal pain on her right side with nausea and some chills present. Medical History Uterine CA; Clinical Indicators: LABS Wbc 16.1; Neutrophils # 14.1: Na 136; CT ABD Moderate inflammatory changes in the right upper quadrant at the hepatic flexure. VSS 04/02/19 13:07 156/85 84 100.3 16 98% RA VSS 04/02/19 15:10 127/89 89 98.9 18 96% RA Treatment: 04/02/2019 1328 0.9ns 1L bolus; Levofloxacin 750mg ivpb x; Metronidazole 500mg ivpb x1: 0.9ns 10cchr; Metronidazole 500 mg ivpb q 8hrs; Zosyn 3.375 gm ivpb q 8hrs Definition of Present on Admission (POA): A diagnosis present at the time the order for admission to inpatient status was written. For each diagnosis, documentation must be clear to determine if the condition was present at the time of the patients inpatient admission or developed during the hospital stay. Please clarify if Sepsis was POA: ____Sepsis Ruled Out ____Y = Yes, the condition was present at the time of the order for inpatient admission. ____N = No, the condition was not present at the time of the order for inpatient admission. ____W = Clinically undetermined if the condition was present at the time of the order for inpatient admission. (Last Revision: Apr 2018) Acute diverticulitis in the right hepatic flexure, causing sepsis, POA MTDD
--- NOTE | 2019-04-04 13:42 | P.PN ---
Subjective Progress Note Date: 04/04/19 CHIEF COMPLAINT: Abdominal pain HISTORY OF PRESENT ILLNESS: Patient examined this morning bedside with Dr. Perez. Patient states her abdominal pain has resolved. Denies nausea or vomiting. Tolerating diet. Reports having a bowel movement this morning. WBC 8.5. Hemoglobin 12.8. She has been afebrile. PHYSICAL EXAM: VITAL SIGNS: Reviewed GENERAL: Well-developed in no acute distress. HEENT: No sclera icterus. Extraocular movements grossly intact. Moist buccal mucosa. Head is atraumatic, normocephalic. Hears conversational speech. No nasal drainage. NECK: Supple without lymphadenopathy. CHEST: Non-labored respirations and equal bilateral excursions. CARDIOVASCULAR: Regular rate with regular rhythm. Palpable 2+ radial pulses. ABDOMEN: Obese. Soft. Nondistended. Nontender. Positive bowel sounds. No peritoneal signs. MUSCULOSKELETAL: No clubbing, cyanosis or edema. NEUROLOGIC: No focal or lateralizing signs. Cranial nerves II through XII grossly intact. PSYCH: Appropriate affect. Alert and oriented to person, place and time. SKIN: Well perfused. Good skin turgor. ASSESSMENT: 1. Abdominal pain 2. Acute diverticulitis of right upper quadrant at hepatic flexure 3. Family history of diverticulitis PLAN: Continue diet as tolerated Patient is stable for discharge from a surgical standpoint. Prescription sent for Cipro and Flagyl to patient's pharmacy Patient to follow-up with Dr. Perez outpatient Nurse practitioner note has been reviewed by physician. Signing provider agrees with the documented findings, assessment, and plan of care. Objective - Vital Signs Vital signs: Vital Signs Temp 98.3 F 04/04/19 08:23 Pulse 73 04/04/19 08:23 Resp 18 04/04/19 08:23 BP 136/84 04/04/19 08:23 Pulse Ox 94 L 04/04/19 08:23 Intake & Output 04/03/19 04/04/19 04/04/19 18:59 06:59 18:59 Intake Total 120 300 Balance 120 300 Weight 153.314 kg Intake: Oral 120 300 Other: Voiding Method Toilet Toilet # Voids 1 1 1 # Bowel Movements 1 - Labs CBC & Chem 7: 04/04/19 07:23 04/02/19 13:45 Labs: Abnormal Lab Results - Last 24 Hours (Table) 04/04/19 Range/Units 07:23 MCV 100.5 H (80.0-100.0) fL Microbiology - Last 24 Hours (Table) 04/02/19 13:45 Blood Culture - Preliminary Blood No Growth after 24 hours Assessment and Plan (1) Acute diverticulitis Current Visit: Yes Status: Acute Code(s): K57.92 - DVTRCLI OF INTEST, PART UNSP, W/O PERF OR ABSCESS W/O BLEED SNOMED Code(s): 504106479
--- NOTE | 2019-04-04 23:50 | P.DS ---
Providers Date of admission: 04/02/19 15:36 Expected date of discharge: 04/04/19 Attending physician: Bjorn Corey Consults: 04/02/19 15:37 Consult Physician Urgent Consulting Provider: Wendy Perez Consult Reason/Comments: diverticulitis Do you want consulting provider notified?: Yes Primary care physician: [facility] Hospital Course: Chief Complaint: Abdominal pain Hospital course: This is a very pleasant 68-year-old patient who follows with Dr. Renae. She is otherwise remarkably good health. Last night she had gone to the bathroom then started noticing some right-sided abdominal pain. She slowly progressed to get much worse. Does some nausea and some chills present. She is not sure if there was any fever. Patient normally is to 3 bowel movements a day. Patient continued to get worse and the surgical complaint ear. Computed tomography scan did show hepatic flexure diverticulitis. Admitted for the same. Has not had any endoscopy previously. Admitted with right hepatic flexure diverticulitis. Treated with IV Zosyn and Flagyl. Responded well. Today-l abdominal pain much improved. 2 nausea vomiting. No fever. Did have 1 bowel movement this morning. Feels at the bedside. Cleared by surgery to go home. Did tolerate oatmeal breakfast.. Care was discussed with the patient. Consultation: Dr. Wendy Rasheed from general surgery Physical examination: VITAL SIGNS: 98.3, 73, 18, 136/84, 94% room air GENERAL: Laying in bed, comfortable. EYES: Pupils equal. Conjunctiva normal. HEENT: External appearance of nose and ears normal, oral cavity grossly normal. NECK: JVD not raised; masses not palpable. HEART: First and second heart sounds are normal; no edema. LUNGS: Respiratory rate normal; distant breath sounds. ABDOMEN: Soft, minimal right-sided tenderness. No guarding or rigidity, liver spleen not palpable, no masses palpable. PSYCH: Alert and oriented x3; mood and affect normal. INVESTIGATIONS, reviewed in the clinical context: White count 8.5 down from 16.1 creatinine 0.68 Computed tomography scan of the abdomen-fatty infiltration of liver, moderate fat stranding in the right upper quadrant of the hepatic flexure of the colon, numerous diverticula throughout the colon Assessment: -Acute colonic diverticulitis in the hepatic flexure -Diffuse colonic diverticulosis -Morbid obesity BMI 59.9 Disposition: Home Patient Condition at Discharge: Stable Plan - Discharge Summary Discharge Rx Participant: Yes New Discharge Prescriptions: New Ciprofloxacin HCl [Cipro] 500 mg PO Q12HR #14 tablet metroNIDAZOLE [Flagyl] 500 mg PO TID #21 tab Acetaminophen Tab [Tylenol] 650 mg PO Q4HR PRN tab PRN Reason: Fever And/ Or Pain Continue Naproxen Sodium [Aleve] 440 mg PO Q12H PRN PRN Reason: Pain Discharge Medication List Naproxen Sodium [Aleve] 440 mg PO Q12H PRN 04/02/19 [History] Acetaminophen Tab [Tylenol] 650 mg PO Q4HR PRN tab 04/04/19 [Rx] Ciprofloxacin HCl [Cipro] 500 mg PO Q12HR #14 tablet 04/04/19 [Rx] metroNIDAZOLE [Flagyl] 500 mg PO TID #21 tab 04/04/19 [Rx] Follow up Appointment(s)/Referral(s): Dank Damon MD [Primary Care Provider] - 1 Week (04-05-19 AT 10:00AM) Wendy Perez MD [STAFF PHYSICIAN] - 04/11/19 (04-11-19 AT 10:40AM) Patient Instructions/Handouts: Diverticulitis (DC) Activity/Diet/Wound Care/Special Instructions: SOFT BLAND DIET... SUGGESTED BY DR COREY, MASHED POTATOES, EGGS, YOGURT, DRINK PLENTY OF LIQUIDS, CALL FOR WORSENING PROBLEMS OR CONCERNS. Discharge Disposition: HOME SELF-CARE
== END 2019-04-04 13:45 | disposition home or self-care (01) | DRG 872 ==
LOC: EC 12:44 → 3NMEDONC 15:36 → 6PED 04-03 10:18
PROVIDERS: ADMIT Hospitalist; ATTEND Hospitalist
DX: A41.9 Sepsis, unspecified organism (principal); Z68.43 Body mass index [BMI] 50.0-59.9, adult; K57.32 Diverticulitis of large intestine without perforation or abscess without bleeding; E66.01 Morbid (severe) obesity due to excess calories; Z90.49 Acquired absence of other specified parts of digestive tract; Z90.710 Acquired absence of both cervix and uterus; Z85.42 Personal history of malignant neoplasm of other parts of uterus; Z98.890 Other specified postprocedural states; Z82.5 Family history of asthma and other chronic lower respiratory diseases; Z84.2 Family history of other diseases of the genitourinary system; Z83.79 Family history of other diseases of the digestive system
CPT/HCPCS: 36415; 74177; 80053; 81001; 82150; 83605; 83690; 85025; 85027; 87040; 96361; 96374; 99285

== ENCOUNTER 2019-06-21 08:06 | Day surgery (SDC) | payer MEDICARE ==
[2019-06-19 10:35] VITALS: BMI 55.0
[~2019-06-21 08:06] MED LIST: LACTATED RINGERS 1,000 ML IV SCH; LIDOCAINE 1% 20 ML VIAL (10MG/ML) FOR IV START INTRADERMA PRN
--- NOTE | 2019-06-21 08:13 | P.GSHP ---
History of Present Illness H&P Date: 06/21/19 CHIEF COMPLAINT: Colon screen HISTORY OF PRESENT ILLNESS: The patient is a 68-year-old female who presents for colon screen. Lower endoscopy was offered for further evaluation and management. PAST MEDICAL HISTORY: Please see list. PAST SURGICAL HISTORY: Please see list. MEDICATIONS: Please see list. ALLERGIES: Please see list. SOCIAL HISTORY: No illicit drug use FAMILY HISTORY: No reports of Crohn disease or ulcerative colitis. REVIEW OF ORGAN SYSTEMS: CONSTITUTIONAL: No reports of fevers or chills. PHYSICAL EXAM: VITAL SIGNS: Stable GENERAL: Well-developed pleasant in no acute distress. HEENT: No scleral icterus. Extraocular movements grossly intact. Moist buccal mucosa. NECK: Supple without lymphadenopathy. CHEST: Unlabored respirations. Equal bilateral excursions. CARDIOVASCULAR: Regular rate and rhythm. Distal 2+ pulses. ABDOMEN: Soft, nontender, nondistended. MUSCULOSKELETAL: No clubbing, cyanosis, or edema. ASSESSMENT: 1. Colon screen. PLAN: 1. Recommend proceeding with a lower endoscopy Past Medical History Past Medical History: Cancer, Sleep Apnea/CPAP/BIPAP Additional Past Medical History / Comment(s): Uterine CA 2005, broke left leg and has a plate in it in 1994, diverticulitis, has cpap History of Any Multi-Drug Resistant Organisms: None Reported Past Surgical History: Cholecystectomy, Hernia Repair, Hysterectomy, Orthopedic Surgery Additional Past Surgical History / Comment(s): Left lower leg surgery with metal plate Past Anesthesia/Blood Transfusion Reactions: No Reported Reaction Smoking Status: Never smoker - Past Family History Mother History Unknown: Yes Additional Family Medical History / Comment(s): Asthma, bladder disease Father Family Medical History: Cancer Additional Family Medical History / Comment(s): bladder cancer Medications and Allergies Home Medications Medication Instructions Recorded Confirmed Type No Known Home Medications 06/19/19 06/19/19 History Allergies Allergy/AdvReac Type Severity Reaction Status Date / Time No Known Allergies Allergy Verified 06/19/19 10:29
[2019-06-21 08:34] VITALS: TEMP 98.2
[2019-06-21] MEDS ORDERED: PROPOFOL 10 MG/ML 20 ML VIAL IV ONE (09:12)
--- NOTE | 2019-06-21 09:45 | P.PCN ---
Date of Procedure: 06/21/19 Description of Procedure: PREOPERATIVE DIAGNOSIS: Personal history of colon polyps Family history malignant colon polyps Colonoscopy screening POSTOPERATIVE DIAGNOSIS: Personal history of colon polyps Family history malignant colon polyps Colonoscopy screening Tubular adenoma hepatic flexure Tubular adenoma ascending colon Severe pandiverticulosis OPERATION: Colonoscopy to the ileocecal valve and appendiceal orifice. Colonoscopy with cold forceps biopsies SURGEON: Wendy Perez MD. ANESTHESIA: MAC. INDICATIONS: The patient is an 68-year-old male who presents family history of malignant colon polyps. Last colonoscopy over 10 years ago. Benefits and risks were described and informed consent was obtained. DESCRIPTION OF PROCEDURE: The patient had undergone Suprep. She had been brought into the operating room and laid in the left lateral decubitus position. After adequate intravenous sedation, the rectum was examined with 2% lidocaine jelly. No external hemorrhoids were encountered. The rectal tone was within normal limits. No lesions were palpated in the rectal vault. An Olympus colonoscope was advanced until the ileocecal valve and appendiceal orifice were clearly viewed. The prep was poor with moderate semisolid stool in the colon. Severe pandiverticulosis with severe sigmoid diverticulosis was encountered. Multiple colonic polyps were found and removed with cold forceps. No evidence of focal colitis was found. Retroflexion of the scope demonstrated no internal hemorrhoids. The colon was desufflated. The patient had tolerated the procedure well. Withdrawal time was over 6 minutes. FINDINGS: Aronchick preparation quality scale 3 (1-5) No internal hemorrhoids No external hemorrhoids No arteriovenous malformations. Severe cruz-diverticulosis with severe sigmoid diverticulosis Removal of 3 polyps from the proximal, mid transverse colon and descending colo n: - Cold forceps biopsy at ascending colon, 4 mm polyp. - Cold forceps biopsy at hepatic flexure, 5 mm polyp. No focal colitis. RECOMMENDATIONS: Given severity of tubular adenomas, recommend repeat colonoscopy 3 years, 2022 Plan - Discharge Summary Discharge Rx Participant: Yes New Discharge Prescriptions: No Action No Known Home Medications Discharge Medication List No Known Home Medications 06/19/19 [History] Follow up Appointment(s)/Referral(s): Wendy Perez MD [STAFF PHYSICIAN] - As Needed Patient Instructions/Handouts: Diverticulosis Diet (GEN), Diverticulosis (DC), Colorectal Polyps (DC) Activity/Diet/Wound Care/Special Instructions: Repeat colonoscopy 3 years, 2022 Discharge Disposition: HOME SELF-CARE
[2019-06-21 10:18] VITALS: BP 126/78; PULSE 91; RESP 16
== END 2019-06-21 10:57 | disposition home or self-care (01) ==
LOC: ORWHC2ENDO 08:06
PROVIDERS: ATTEND Surgery Plastic and Reconstructive Surgery
DX: K57.30 Diverticulosis of large intestine without perforation or abscess without bleeding (principal); D12.2 Benign neoplasm of ascending colon; D12.3 Benign neoplasm of transverse colon; G47.33 Obstructive sleep apnea (adult) (pediatric); E66.01 Morbid (severe) obesity due to excess calories; Z68.43 Body mass index [BMI] 50.0-59.9, adult; Z86.010 Personal history of colon polyps; Z85.42 Personal history of malignant neoplasm of other parts of uterus; Z99.89 Dependence on other enabling machines and devices; Z87.81 Personal history of (healed) traumatic fracture; Z90.49 Acquired absence of other specified parts of digestive tract; Z98.890 Other specified postprocedural states; Z90.710 Acquired absence of both cervix and uterus; Z80.0 Family history of malignant neoplasm of digestive organs; Z82.5 Family history of asthma and other chronic lower respiratory diseases; Z84.1 Family history of disorders of kidney and ureter; Z80.52 Family history of malignant neoplasm of bladder
CPT/HCPCS: 88305; 45380; J2704

== ENCOUNTER 2021-11-09 17:15 | Emergency (ER) | payer MEDICARE ==
[2021-11-09 17:20] VITALS: BP 166/78; PULSE 78; RESP 20; TEMP 98.4
--- NOTE | 2021-11-09 17:35 | ED ---
General Adult HPI - General Chief complaint: Extremity Problem,Nontraumatic Stated complaint: Bruise on L leg Time Seen by Provider: 11/09/21 17:20 Source: patient, RN notes reviewed, old records reviewed Mode of arrival: wheelchair Limitations: no limitations - History of Present Illness Initial comments: 71-year-old female presenting for evaluation of bruising to the left anterior lower leg. Patient noticed this and had gone to urgent care. She does not remember a specific trauma. Patient was sent in by urgent care for evaluation of possible DVT. No reported fevers. No chest pain or dyspnea. No anticoagulation. - Related Data Home Medications Medication Instructions Recorded Confirmed No Known Home Medications 06/19/19 06/21/19 Allergies Allergy/AdvReac Type Severity Reaction Status Date / Time No Known Allergies Allergy Verified 11/09/21 17:20 Review of Systems ROS Statement: Those systems with pertinent positive or pertinent negative responses have been documented in the HPI. ROS Other: All systems not noted in ROS Statement are negative. Past Medical History Past Medical History: Cancer, Sleep Apnea/CPAP/BIPAP Additional Past Medical History / Comment(s): Uterine CA 2005, broke left leg and has a plate in it in 1994, diverticulitis, has cpap History of Any Multi-Drug Resistant Organisms: None Reported Past Surgical History: Cholecystectomy, Hernia Repair, Hysterectomy, Orthopedic Surgery Additional Past Surgical History / Comment(s): Left lower leg surgery with metal plate Past Anesthesia/Blood Transfusion Reactions: No Reported Reaction Past Psychological History: No Psychological Hx Reported Smoking Status: Never smoker Past Alcohol Use History: Occasional Past Drug Use History: None Reported - Past Family History Mother History Unknown: Yes Additional Family Medical History / Comment(s): Asthma, bladder disease Father Family Medical History: Cancer Additional Family Medical History / Comment(s): bladder cancer General Exam Limitations: no limitations General appearance: alert, in no apparent distress Head exam: Present: atraumatic, normocephalic Eye exam: Present: normal appearance, PERRL ENT exam: Present: normal exam Neck exam: Present: normal inspection. Absent: tenderness, meningismus Respiratory exam: Present: normal lung sounds bilaterally. Absent: respiratory distress, wheezes Cardiovascular Exam: Present: regular rate, normal rhythm GI/Abdominal exam: Present: soft. Absent: distended, tenderness, guarding Extremities exam: Present: normal capillary refill, other (Left lower extremity: Distal pulses intact, there is a area of ecchymosis on the mid anterior aguila which is somewhat warm to the touch, no cellulitis). Absent: calf tenderness Neurological exam: Present: alert, oriented X3, CN II-XII intact. Absent: motor sensory deficit Psychiatric exam: Present: normal affect, normal mood Skin exam: Present: warm, dry, intact Course Vital Signs 11/09/21 17:18 Temperature 98.4 F Pulse Rate 78 Respiratory 20 Rate Blood Pressure 166/78 O2 Sat by Pulse 98 Oximetry Medical Decision Making - Medical Decision Making Ultrasound performed, negative for DVT. Patient will monitor site, return as needed. Follow-up with primary care physician. Disposition Clinical Impression: Ecchymosis Disposition: HOME SELF-CARE Condition: Fair Instructions (If sedation given, give patient instructions): Ecchymosis (ED) Is patient prescribed a controlled substance at d/c from ED?: No Referrals: Dank Damon MD [Primary Care Provider] - 1-2 days Time of Disposition: 18:09
--- NOTE | 2021-11-09 18:05 | US ---
EXAMINATION TYPE: US venous doppler duplex LE LT DATE OF EXAM: 11/09/2021 5:56 PM COMPARISON: NONE CLINICAL HISTORY: dvt. Left aguila bruising after injury, warm to touch, no h/o dvt, pt is 335lbs SIDE PERFORMED: Left TECHNIQUE: The lower extremity deep venous system is examined utilizing real time linear array sonog mona with graded compression, doppler sonography and color-flow sonography. VESSELS IMAGED: Common Femoral Vein Deep Femoral Vein Greater Saphenous Vein * Femoral Vein Popliteal Vein Small Saphenous Vein * Proximal Calf Veins (* superficial vessels) Left Leg: Negative for DVTsoft tissue swelling seen at area of bruising along left aguila IMPRESSION: No sign of deep vein thrombosis in the left leg.
== END 2021-11-09 18:31 | disposition home or self-care (01) ==
LOC: EC 17:15
DX: R58 Hemorrhage, not elsewhere classified (principal)
CPT/HCPCS: 99283

== ENCOUNTER → 2022-06-26 | Outpatient (CLI) | payer MEDICARE ==
[2022-06-26 10:18] VITALS: BP 179/81; PULSE 66; RESP 18; TEMP 97.8
--- NOTE | 2022-06-26 10:31 | P.GSHP ---
History of Present Illness H&P Date: 06/26/22 Chief Complaint: Papillary lesion right breast Joan is a 71-year-old white female seen in consultation for Dr. Damon regarding a biopsy of the right breast revealing a papillomatous lesion. [place] [address]. This led to additional views of the right breast and a targeted subareolar ultrasound for a gradually enlarging nodule. The right breast diagnostic mammogram was performed on 1119. This was felt to be incomplete and ultrasound of the retroareolar region was recommended. The calcifications in the right breast were punctate and not significantly changed from 2018. Asymmetry seen on the MLO view of the right breast completely compressed out. On the ultrasound which was performed on 1119 a cystic lesion with mural soft tissue was noted and felt to be suspicious and could represent an intraductal papilloma versus an intracystic papillary carcinoma. Ultrasound-guided core biopsy was recommended. This was performed on 201037. Pathology revealed fragments of a papillary lesion and excisional biopsy was recommended. Patient does not feel any new lumps masses or nodules of concern. This was a routine mammogram. She is not complaining of any nipple discharge or skin changes. She has not had any recent trauma or infection of the breast. She had a right breast abscess at the age of 14. CAffiene: 1 pop/week nicotine: none chocolate: daily BCP: none hormones: none Family History: maternal grandmother: colon cancer father: bladder cancer patient: uterine cancer Hormonal History: menarche: f13 G0 menoapuse: 42 hormones: none Surgical History: uterine cancer hysterectomy, no chemo or radiation gallbladder left leg fracture ganglion cyst left hand hernia repair umbilical Medical history: none Social history: Nicotine: Negative Alcohol: occasional Drugs: Negative - Constitutional Constitutional: Reports sweats - EENT Eyes: denies blurred vision, denies pain Ears: bilateral: tinnitus, deny: decreased hearing Ears, nose, mouth and throat: Denies headache, Denies sore throat - Breasts Breasts: bilateral: as per HPI - Cardiovascular Cardiovascular: Denies chest pain, Denies shortness of breath - Respiratory Respiratory: Denies cough, Denies 7 - Gastrointestinal Gastrointestinal: Denies abdominal pain, Denies diarrhea, Denies nausea, Denies vomiting - Genitourinary (Female) Genitourinary: Denies dysuria, Denies hematuria - Menstruation Menstruation: Reports postmenopausal - Musculoskeletal Musculoskeletal: Reports as per HPI - Integumentary Comment: dry skin - Neurological Neurological: Denies numbness, Denies weakness - Psychiatric Psychiatric: Denies anxiety, Denies depression - Endocrine Endocrine: Denies fatigue, Denies weight change - Hematologic/Lymphatic Comment: none - Allergic/Immunologic Allergic/Immunologic: Reports seasonal allergies Past Medical History Past Medical History: Cancer, Sleep Apnea/CPAP/BIPAP Additional Past Medical History / Comment(s): Uterine CA 2005, broke left leg and has a plate in it in 1994, diverticulitis, has cpap History of Any Multi-Drug Resistant Organisms: None Reported Past Surgical History: Cholecystectomy, Hernia Repair, Hysterectomy, Orthopedic Surgery Additional Past Surgical History / Comment(s): Left lower leg surgery with metal plate Past Anesthesia/Blood Transfusion Reactions: No Reported Reaction Past Psychological History: No Psychological Hx Reported Smoking Status: Never smoker Past Alcohol Use History: Occasional Past Drug Use History: None Reported - Past Family History Mother History Unknown: Yes Additional Family Medical History / Comment(s): Asthma, bladder disease Father Family Medical History: Cancer Additional Family Medical History / Comment(s): bladder cancer Medications and Allergies Home Medications Medication Instructions Recorded Confirmed Type No Known Home Medications 06/19/19 06/21/19 History Allergies Allergy/AdvReac Type Severity Reaction Status Date / Time No Known Allergies Allergy Verified 11/09/21 17:20 Surgical - Exam BMI 60.6 - General no distress - Eyes normal ocular movement - Neck trachea midline - Respiratory normal respiratory effort, clear to auscultation - Cardiovascular Heart Sounds: normal: S1, S2 - Abdomen Abdomen: soft, non tender, no guarding, no rigid, no rebound - Integumentary normal turgor - Neurologic no disoriented, no combative - Psychiatric oriented to time, oriented to person, oriented to place, speech is normal, memory intact Breast Exam: BRA: 44C inspection: bilateral grade 3 ptosis Patient: Right breast: Multiple positional exam fibrocystic changes, no dominant masses or nodules of concern Right axilla: No adenopathy of concern Left breast: Multiple positional exam fibrocystic changes no dominant masses or nodules of concern Left axilla: No adenopathy of concern Results Mammogram and ultrasound reviewed with radiology/Dr. Scales Assessment and Plan Assessment: Impression: Right breast papillary lesion BMI 60.6 Plan: Right breast needle localization lumpectomy, possible optical plastic tissue transferred Preoperative clearance from Dr. Damon CC: Dr. Ortez
== END ==
LOC: WWCWWP 09:50
PROVIDERS: ATTEND Surgery
DX: Z85.3 Personal history of malignant neoplasm of breast (principal)

== ENCOUNTER → 2022-09-03 | Outpatient (CLI) | payer MEDICARE ==
[2022-09-03 13:43] VITALS: BP 178/91; PULSE 70; RESP 17; TEMP 98.2
--- NOTE | 2022-09-03 13:56 | P.PN ---
Subjective Progress Note Date: 09/03/22 Principal diagnosis: papillary lesion on right breast core biopsy Chief Complaint: Papillary lesion right breast Joan is a 72-year-old white female seen in consultation for Dr. Damon regarding a biopsy of the right breast revealing a papillomatous lesion. She underwent a bilateral screening mammogram on . This led to additional views of the right breast and a targeted subareolar ultrasound for a gradually enlarging nodule. The right breast diagnostic mammogram was performed on 1119. This was felt to be incomplete and ultrasound of the retroareolar region was recommended. The calcifications in the right breast were punctate and not significantly changed from 2018. Asymmetry seen on the MLO view of the right breast completely compressed out. On the ultrasound which was performed on 1119 a cystic lesion with mural soft tissue was noted and felt to be suspicious and could represent an intraductal papilloma versus an intracystic papillary carcinoma. Ultrasound-guided core biopsy was recommended. This was performed on 586112. Pathology revealed fragments of a papillary lesion and excisional biopsy was recommended. Patient does not feel any new lumps masses or nodules of concern. This was a routine mammogram. She is not complaining of any nipple discharge or skin changes. She has not had any recent trauma or infection of the breast. She had a right breast abscess at the age of 14. 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 CAffiene: 1 pop/week nicotine: none chocolate: daily BCP: none hormones: none Family History: maternal grandmother: colon cancer father: bladder cancer patient: uterine cancer Hormonal History: menarche: f13 G0 menoapuse: 42 hormones: none Surgical History: uterine cancer hysterectomy, no chemo or radiation gallbladder left leg fracture ganglion cyst left hand hernia repair umbilical Medical history: none Social history: Nicotine: Negative Alcohol: occasional Drugs: Negative - Constitutional Constitutional: Reports sweats - EENT Eyes: denies blurred vision, denies pain Ears: bilateral: tinnitus, deny: decreased hearing Ears, nose, mouth and throat: Denies headache, Denies sore throat - Breasts Breasts: bilateral: as per HPI - Cardiovascular Cardiovascular: Denies chest pain, Denies shortness of breath - Respiratory Respiratory: Denies cough - Gastrointestinal Gastrointestinal: Denies abdominal pain, Denies diarrhea, Denies nausea, Denies vomiting - Genitourinary (Female) Genitourinary: Denies dysuria, Denies hematuria - Menstruation Menstruation: Reports postmenopausal - Musculoskeletal Musculoskeletal: Reports as per HPI - Integumentary Comment: dry skin - Neurological Neurological: Denies numbness, Denies weakness - Psychiatric Psychiatric: Denies anxiety, Denies depression - Endocrine Endocrine: Denies fatigue, Denies weight change - Hematologic/Lymphatic Comment: none - Allergic/Immunologic Allergic/Immunologic: Reports seasonal allergies Past Medical History Past Medical History: Cancer, Sleep Apnea/CPAP/BIPAP Additional Past Medical History / Comment(s): Uterine CA 2005, broke left leg and has a plate in it in 1994, diverticulitis, has cpap History of Any Multi-Drug Resistant Organisms: None Reported Past Surgical History: Cholecystectomy, Hernia Repair, Hysterectomy, Orthopedic Surgery Additional Past Surgical History / Comment(s): Left lower leg surgery with metal plate Past Anesthesia/Blood Transfusion Reactions: No Reported Reaction Past Psychological History: No Psychological Hx Reported Smoking Status: Never smoker Past Alcohol Use History: Occasional Past Drug Use History: None Reported - Past Family History Mother History Unknown: Yes Additional Family Medical History / Comment(s): Asthma, bladder disease Father Family Medical History: Cancer Additional Family Medical History / Comment(s): bladder cancer Medications and Allergies Home Medications Medication Instructions Recorded Confirmed Type No Known Home Medications 06/19/19 06/21/19 History Allergies Allergy/AdvReac Type Severity Reaction Status Date / Time No Known Allergies Allergy Verified 11/09/21 17:20 Objective - Vital Signs Vital signs: Vital Signs Temp 98.2 F 09/03/22 13:40 Pulse 70 09/03/22 13:40 Resp 17 09/03/22 13:40 BP 178/91 09/03/22 13:40 Pulse Ox 98 09/03/22 13:40 FiO2 Intake & Output 09/02/22 09/03/22 09/03/22 18:59 06:59 18:59 Weight 155.582 kg - Constitutional General appearance: Present: cooperative - EENT Eyes: Present: EOMI ENT: Present: hearing grossly normal - Neck Neck: Present: normal ROM - Respiratory Respiratory: bilateral: CTA - Cardiovascular Rhythm: regular Heart sounds: normal: S1, S2 - Gastrointestinal General gastrointestinal: Present: soft - Integumentary Integumentary: Present: normal turgor - Musculoskeletal Musculoskeletal: Present: gait normal - Psychiatric Psychiatric: Present: A&O x's 3, appropriate affect, intact judgment & insight - Additional findings Additional findings: Breast Exam: BRA: 44C inspection: bilateral grade 3 ptosis Patient: Right breast: Multiple positional exam fibrocystic changes, no dominant masses or nodules of concern Right axilla: No adenopathy of concern Left breast: Multiple positional exam fibrocystic changes no dominant masses or nodules of concern Left axilla: No adenopathy of concern Fungal Infection under both breast Assessment and Plan Assessment: Impression: Right breast papillary lesion BMI 60.6 fungal infection under both breast Plan: Right breast needle localization lumpectomy, possible onco- plastic tissue transferred Preoperative clearance from Dr. Damon Nystatin under breast as needed for fungal infection Opoid Start talking form filled out, and prescription given for norco CC: DR. Damon
== END ==
LOC: WWCWWP 13:24
PROVIDERS: ATTEND Surgery
DX: D24.1 Benign neoplasm of right breast (principal); Z68.44 Body mass index [BMI] 60.0-69.9, adult; B37.89 Other sites of candidiasis; N60.01 Solitary cyst of right breast; N63.41 Unspecified lump in right breast, subareolar; N64.89 Other specified disorders of breast; Z01.818 Encounter for other preprocedural examination; Z80.0 Family history of malignant neoplasm of digestive organs; Z85.42 Personal history of malignant neoplasm of other parts of uterus; Z90.49 Acquired absence of other specified parts of digestive tract; Z90.710 Acquired absence of both cervix and uterus; F17.210 Nicotine dependence, cigarettes, uncomplicated

== ENCOUNTER 2022-09-29 09:46 | Day surgery (SDC) | payer MEDICARE ==
[~2022-09-29 09:46] MED LIST changes: +HEPARIN SODIUM,PORCINE/PF 5,000 UNIT/0.5 ML SYRINGE SQ PRN; +HYDROmorphone 0.5 MG/0.5 ML SYRINGE IVP PRN; -LIDOCAINE 1% 20 ML VIAL (10MG/ML) FOR IV START INTRADERMA PRN; +ONDANSETRON 4 MG/2 ML VIAL IVP ONE; +Pre Op ABX Message 1 EACH MISC MISCELLANE ONE; +fentaNYL (PF) 50 MCG/ML 2 ML AMP IV PRN
[2022-09-29] MEDS ORDERED: ALPRAZolam 0.25 MG TAB ONE (10:34)
[2022-09-29] MEDS ORDERED: ALPRAZolam 0.25 MG TAB PO ONE (10:40)
[2022-09-29 11:04] VITALS: RESP 16
[2022-09-29] MEDS ORDERED: LIDOCAINE 1% INJ 10MG/ML (20 ML MDV) SQ ONE (11:21)
[2022-09-29] MEDS ORDERED: ONDANSETRON 4 MG/2 ML VIAL ONE (11:53)
[2022-09-29] MEDS ORDERED: DEXAMETHASONE SOD PHOSPHATE 4 MG/ML 1 ML VIAL IV ONE (12:00)
[2022-09-29] MEDS ORDERED: SODIUM CHLORIDE 0.9% 100 ML BAG ONE (16:12)
[2022-09-29] MEDS ORDERED: SUCCINYLCHOLINE CHLORIDE 200 MG/10 ML VIAL IV ONE (16:12)
[2022-09-29] MEDS ORDERED: MIDAZOLAM 2 MG/2 ML VIAL ONE (16:12)
[2022-09-29] MEDS ORDERED: PROPOFOL 10 MG/ML 20 ML VIAL IV ONE (16:12)
[2022-09-29] MEDS ORDERED: fentaNYL (PF) 50 MCG/ML 2 ML AMP ONE (16:12)
[2022-09-29] MEDS ORDERED: ceFAZolin 1,000 MG VIAL ONE (16:12)
[2022-09-29] MEDS ORDERED: LIDOCAINE 2% INJ 20 MG/ML (2 ML VIAL) ONE (16:12)
[2022-09-29] MEDS ORDERED: SODIUM CHLORIDE 0.9% 100 ML with ceFAZolin 3,000 MG IV ONE ×2 (16:35)
--- NOTE | 2022-09-29 17:03 | P.OP ---
Date of Procedure: 09/29/22 Preoperative Diagnosis: Abnormal core biopsy right breast intraductal papilloma versus papillary carcinoma Postoperative Diagnosis: Same Procedure(s) Performed: needle localization excisional biopsy area of concern in the right breast Anesthesia: GIUSEPPE Surgeon: Brandee Leach Estimated Blood Loss (ml): 5 IV fluids (ml): 200 Pathology: other (Breast tissue) Condition: stable Disposition: same day Indications for Procedure: Core biopsy intraductal papilloma versus papillary carcinoma Operative Findings: Fibrofatty breast tissue Description of Procedure: Following localization of the area of concern in the right breast the patient was taken to the operating room. Following induction of anesthesia the right breast was prepped and draped in a sterile fashion. A periareolar incision was made and carried down to the shaft of the needle. Surrounding tissue was excised. The specimen was painted for orientation. After we assured hemostasis was attained titanium clips were placed in the cavity. The deep tissues were closed using 3-0 Vicryl suture. Radiograph of the specimen revealed that the area of concern had been removed. The subcutaneous tissue was closed using 3-0 Vicryl suture. The skin was closed using 4-0 Monocryl. Steri-Strips were applied. The patient tolerated the procedure in stable condition.
--- NOTE | 2022-09-29 17:05 | P.DS ---
Providers Attending physician: Brandee Leach Primary care physician: Rupesh Damon Plan - Discharge Summary Discharge Rx Participant: No New Discharge Prescriptions: No Action No Known Home Medications Discharge Medication List No Known Home Medications 09/23/22 [History] Follow up Appointment(s)/Referral(s): Brandee Leach MD [STAFF PHYSICIAN] - 10/08/22 4:00 pm Activity/Diet/Wound Care/Special Instructions: Do not drive for 24 hours after discharge May shower after [address] if taking narcotic pain medicine wear surgical bra at all times Discharge Disposition: HOME SELF-CARE
[2022-09-29] MEDS ORDERED: LACTATED RINGERS 1,000 ML IV ONE (17:17)
[2022-09-29 17:29] VITALS: TEMP 96.8
[2022-09-29] MEDS ORDERED: HYDROmorphone 0.5 MG/0.5 ML SYRINGE IVP ONE (17:43)
[2022-09-29] MEDS ORDERED: HYDROcodone/APAP 5-325MG 1 EACH TAB ONE ×2 (18:05→18:30)
[2022-09-29] MEDS ORDERED: HYDROcodone/APAP 5-325MG 1 EACH TAB PO ONE ×2 (18:07→18:32)
[2022-09-29 18:48] VITALS: BP 164/70; PULSE 61
== END 2022-09-29 19:08 | disposition home or self-care (01) ==
LOC: OR 09:46
PROVIDERS: ATTEND Surgery
DX: D24.1 Benign neoplasm of right breast (principal); E66.01 Morbid (severe) obesity due to excess calories; Z68.43 Body mass index [BMI] 50.0-59.9, adult
CPT/HCPCS: 76098; 19281; C1819; J2250; J0330; J1100; J2405; J0690; J2001 ×2; J3010; J2704; J1170; J1644; 88307

== ENCOUNTER → 2022-10-08 | Outpatient (CLI) | payer MEDICARE ==
[2022-10-08 15:59] VITALS: BP 158/79; PULSE 61; RESP 18; TEMP 97.7
--- NOTE | 2022-10-08 16:15 | P.PN ---
Progress Note - Text Progress Note Date: 10/08/22 Joan is a 72 year old white female status post a right breast needle localization and resection on 09-29-22. Her pathology revealed an intraductal papilloma. The margin was (+). Tolerated the surgery without difficulty. Pathology revealed a metallic clip which was localized in the area. It also revealed a 0.9 x 0.4 cm rubbery nodule lesion. There was no evidence of any cancer or precancer there was intraductal papilloma focally involving the lateral margin. 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 Damon
== END | disposition home or self-care (01) ==
LOC: WWCWWP 15:38
PROVIDERS: ATTEND Surgery
DX: Z85.3 Personal history of malignant neoplasm of breast (principal)

== ENCOUNTER 2023-08-18 08:16 | Emergency (ER) | payer MEDICARE ==
[2023-08-18] MEDS: SODIUM CHLORIDE 0.9% 1,000 ML IV ONE (08:40)
[2023-08-18] MEDS: ONDANSETRON 4 MG/2 ML VIAL IVP STA (08:40)
[2023-08-18] MEDS: MECLIZINE 12.5 MG TAB PO STA (08:41)
[2023-08-18 08:52] LABS: Basophils % (A) 1 %; Eosinophils # (A) 0.2 k/uL (0-0.7); Eosinophils % (A) 3 %; HGB 15.5 gm/dL (11.4-16.0); Lymphocytes # (A) 1.6 k/uL (1.0-4.8); Lymphocytes % (A) 25 %; MCH 32.3 pg (25.0-35.0); MCV 104.3 fL (80.0-100.0); Macrocytosis Slight; Mean Platelet Volume 8.2; Monocytes # (A) 0.3 k/uL (0-1.0); Monocytes % (A) 4 %; Neutrophils # (A) 4.3 k/uL (1.3-7.7); Neutrophils % (A) 66 %; Platelet Count 246 k/uL (150-450); RDW 12.8 % (11.5-15.5); WBC 6.5 k/uL (3.8-10.6)
[2023-08-18 09:04] LABS: ALT 24 U/L (4-34); AST 25 U/L (14-36); African American GFR (CKD) >90 (>60 ml/min/1.73 sqM); Albumin 3.8 g/dL (3.5-5.0); Alkaline Phosphatase 91 U/L (38-126); Anion Gap 8 mmol/L; Blood Urea Nitrogen 14 mg/dL (7-17); Calcium 9.2 mg/dL (8.4-10.2); Carbon Dioxide 26 mmol/L (22-30); Chloride 107 mmol/L (98-107); Glucose 128 mg/dL (74-99); Non-African American GFR(CKD) 89 (>60 ml/min/1.73 sqM); Potassium 4.1 mmol/L (3.5-5.1); Sodium 141 mmol/L (137-145); Total Protein 7.3 g/dL (6.3-8.2)
[2023-08-18 09:28] LABS: Appearance,Urine Clear (Clear); Bilirubin,Urine Negative (Negative); Blood,Urine Negative (Negative); Color,Urine Colorless; Glucose,Urine (UA) Negative (Negative); Ketones,Urine Negative (Negative); Leukocyte Esterase,Urine Negative (Negative); Nitrite,Urine Negative (Negative); Protein,Urine Negative (Negative); Specific Gravity,Urine 1.016 (1.001-1.035); Urobilinogen,Urine <2.0 mg/dL (<2.0)
--- NOTE | 2023-08-18 09:47 | ED ---
General Adult HPI - General Chief complaint: Nausea/Vomiting/Diarrhea Stated complaint: NV,Dizziness Time Seen by Provider: 08/18/23 08:25 Source: patient Mode of arrival: EMS - History of Present Illness Initial comments: 73-year-old female who presents emergency department reporting nausea, vomiting and dizziness. States she awoke from sleep, rolled over in bed and had sudden onset of room spinning sensation. States that her dizziness is worse with positional changes. She has had several episodes of vomiting. Denies headache or visual changes. No unilateral numbness or weakness. No head injuries. Denies any chiropractic manipulation of the neck. No history of CVA. Denies any history of vertigo. She did not attempt to take any medications for her symptoms before coming to the emergency department. She called EMS. Patient has had to be provided with any medications. IV was attempted but unsuccessful. She denies any chest pain or difficulty breathing. No fevers. No other alleviating, precipitating or modifying factors - Related Data Previous Rx's Medication Instructions Recorded Ondansetron [Zofran] 4 mg PO Q8HR PRN #20 tab 08/18/23 diazePAM [Valium] 5 mg PO Q8H PRN 3 Days #9 tab 08/18/23 Allergies Allergy/AdvReac Type Severity Reaction Status Date / Time No Known Allergies Allergy Verified 08/18/23 12:10 Review of Systems ROS Statement: Those systems with pertinent positive or pertinent negative responses have been documented in the HPI. ROS Other: All systems not noted in ROS Statement are negative. Past Medical History Past Medical History: Cancer, Sleep Apnea/CPAP/BIPAP Additional Past Medical History / Comment(s): Uterine CA 2005, broke left leg and has a plate in it in 1994, diverticulitis, has cpap History of Any Multi-Drug Resistant Organisms: None Reported Past Surgical History: Cholecystectomy, Hernia Repair, Hysterectomy, Orthopedic Surgery Additional Past Surgical History / Comment(s): Left lower leg surgery with metal plate, lft hand ganglion cyst, Past Anesthesia/Blood Transfusion Reactions: No Reported Reaction Past Psychological History: No Psychological Hx Reported Smoking Status: Never smoker Past Alcohol Use History: Occasional Past Drug Use History: None Reported - Past Family History Mother History Unknown: Yes Additional Family Medical History / Comment(s): Asthma, bladder disease Father Family Medical History: Cancer Additional Family Medical History / Comment(s): bladder cancer General Exam General appearance: alert, in no apparent distress Head exam: Present: atraumatic, normocephalic, normal inspection Eye exam: Present: normal appearance, PERRL, EOMI. Absent: scleral icterus, conjunctival injection, periorbital swelling ENT exam: Present: normal exam, mucous membranes moist Neck exam: Present: normal inspection. Absent: tenderness, meningismus, lymphadenopathy Respiratory exam: Present: normal lung sounds bilaterally. Absent: respiratory distress, wheezes, rales, rhonchi, stridor Cardiovascular Exam: Present: regular rate, normal rhythm, normal heart sounds. Absent: systolic murmur, diastolic murmur, rubs, gallop, clicks GI/Abdominal exam: Present: soft, normal bowel sounds. Absent: distended, tenderness, guarding, rebound, rigid Extremities exam: Present: normal inspection, full ROM, normal capillary refill. Absent: tenderness, pedal edema, joint swelling, calf tenderness Back exam: Present: normal inspection Neurological exam: Present: alert, oriented X3, CN II-XII intact Psychiatric exam: Present: normal affect, normal mood Skin exam: Present: warm, dry, intact, normal color. Absent: rash Course Vital Signs 08/18/23 08/18/23 08/18/23 08:19 09:21 10:01 Temperature 97.1 F L Pulse Rate 68 61 Pulse Rate [ 60 Slitting Machine Operator Helper ] Respiratory 18 18 Rate Blood Pressure 197/94 154/78 Blood Pressure [Right Arm Sitting] Blood Pressure [Right Arm Standing] Blood Pressure 160/85 [Right Arm Supine] O2 Sat by Pulse 97 98 98 Oximetry 08/18/23 08/18/23 08/18/23 10:02 10:04 11:00 Temperature Pulse Rate 58 L Pulse Rate [ 68 71 Slitting Machine Operator Helper ] Respiratory 15 Rate Blood Pressure 135/62 Blood Pressure 170/104 [Right Arm Sitting] Blood Pressure 182/106 [Right Arm Standing] Blood Pressure [Right Arm Supine] O2 Sat by Pulse 100 98 95 Oximetry 08/18/23 13:00 Temperature 97.5 F L Pulse Rate 64 Pulse Rate [ Slitting Machine Operator Helper ] Respiratory 18 Rate Blood Pressure 149/81 Blood Pressure [Right Arm Sitting] Blood Pressure [Right Arm Standing] Blood Pressure [Right Arm Supine] O2 Sat by Pulse 98 Oximetry Medical Decision Making - Medical Decision Making Was pt. sent in by a medical professional or institution (CELESTE Peraza, DONOR SERVICES TECHNICIAN, urgent care, hospital, or fci...) When possible be specific @ -No Did you speak to anyone other than the patient for history (EMS, parent, family, police, friend...)? What history was obtained from this source @ -Spoke with EMS for history Did you review nursing and triage notes (agree or disagree)? Why? @ -I reviewed and agree with nursing and triage notes Were old charts reviewed (outside hosp., previous admission, EMS record, old EKG, old radiological studies, urgent care reports/EKG's, fci records)? Report findings @ -No old charts were reviewed Differential Diagnosis (chest pain, altered mental status, abdominal pain women, abdominal pain men, vaginal bleeding, weakness, fever, dyspnea, syncope, headache, dizziness, GI bleed, back pain, seizure, CVA, palpatations, mental health, musculoskeletal)? @ -Differential Dizziness: Benign paroxysmal positional Vertigo, Menieres disease, otitis media, acoustic neuroma, vertebrobasilar insufficiency, cerebellar stroke, encephalitis, hypovolemic, arrhythmia, coronary artery syndrome, anemia, this is not meant to be an all-inclusive list EKG interpreted by me (3pts min.). @ -Yes and demonstrates sinus bradycardia with a rate of 58. HI interval 182. QRS 89. QTc of 409. No acute st segment elevation X-rays interpreted by me (1pt min.). @ -None done CT interpreted by me (1pt min.). @ -None done U/S interpreted by me (1pt. min.). @ -None done What testing was considered but not performed or refused? (CT, X-rays, U/S, labs)? Why? @ -CT was considered however patient has resolution in her symptoms What meds were considered but not given or refused? Why? @ -None Did you discuss the management of the patient with other professionals (kelli aceves i.e. CELESTE Peraza, DONOR SERVICES TECHNICIAN, lab, RT, psych nurse, social staff worker, color artist, teacher, desk officer, manager rn case)? Give summary @ -No Was smoking cessation discussed for >3mins.? @ -No Was critical care preformed (if so, how long)? @ -No Were there social determinants of health that impacted care today? How? (Homelessness, low income, unemployed, alcoholism, drug addiction, transportation, low edu. Level, literacy, decrease access to med. care, penitentiary, rehab)? @ -No Was there de-escalation of care discussed even if they declined (Discuss DNR or withdrawal of care, Hospice)? DNR status @ -No What co-morbidities impacted this encounter? (DM, HTN, Smoking, COPD, CAD, Cancer, CVA, ARF, Chemo, Hep., AIDS, mental health diagnosis, sleep apnea, morbid obesity)? @ -None Was patient admitted / discharged? Hospital course, mention meds given and route, prescriptions, significant lab abnormalities, going to OR and other pertinent info. @ -Upon arrival patient was placed into room 5. A thorough history and physical exam was performed. IV access was established. Patient was given IV fluids and meclizine. Laboratory studies are conducted. Patient is reevaluated and continues to have some dizziness. She was given a dose of Valium. at this point the patient is ambulated. States that she feels much improved. I discussed the diagnosis, differential. At this time the patient feels comfort able going home. She will be given a prescription for Valium and meclizine. Instructed to take the medications as directed for dizziness. Episodes should be short. Patient is to follow-up with her primary care doctor and if she does not have resolution in 72 hours, return to the emergency department. Patient understood this. Given written and verbal discharge instructions discharged home in stable condition Undiagnosed new problem with uncertain prognosis? @ -No Drug Therapy requiring intensive monitoring for toxicity (Heparin, Nitro, Insulin, Cardizem)? @ -No Were any procedures done? @ -No Diagnosis/symptom? @ -Acute vertiginous symptoms, suspected BPPV Acute, or Chronic, or Acute on Chronic? @ -Acute Uncomplicated (without systemic symptoms) or Complicated (systemic symptoms)? @ -Complicated Side effects of treatment? @ -No Exacerbation, Progression, or Severe Exacerbation? @ -No Poses a threat to life or bodily function? How? (Chest pain, [place], [place], pneumonia, PE, COPD, DKA, ARF, appy, cholecystitis, CVA, Diverticulitis, Homicidal, Suicidal, threat to staff... and all critical care pts) @ -No - Lab Data Result diagrams: 08/18/23 08:36 08/18/23 08:36 Lab Results 08/18/23 08/18/23 08/18/23 Range/Units 08:36 08:36 08:36 WBC 6.5 (3.8-10.6) k/uL RBC 4.80 (3.80-5.40) m/uL Hgb 15.5 (11.4-16.0) gm/dL Hct 50.0 H (34.0-46.0) % MCV 104.3 H (80.0-100.0) fL MCH 32.3 (25.0-35.0) pg MCHC 31.0 (31.0-37.0) g/dL RDW 12.8 (11.5-15.5) % Plt Count 246 (150-450) k/uL MPV 8.2 Neutrophils % 66 % Lymphocytes % 25 % Monocytes % 4 % Eosinophils % 3 % Basophils % 1 % Neutrophils # 4.3 (1.3-7.7) k/uL Lymphocytes # 1.6 (1.0-4.8) k/uL Monocytes # 0.3 (0-1.0) k/uL Eosinophils # 0.2 (0-0.7) k/uL Basophils # 0.0 (0-0.2) k/uL Macrocytosis Slight Sodium 141 (137-145) mmol/L Potassium 4.1 (3.5-5.1) mmol/L Chloride 107 (98-107) mmol/L Carbon Dioxide 26 (22-30) mmol/L Anion Gap 8 mmol/L BUN 14 (7-17) mg/dL Creatinine 0.65 (0.52-1.04) mg/dL Est GFR (CKD-EPI)AfAm >90 (>60 ml/min/1.73 sqM) Est GFR (CKD-EPI)NonAf 89 (>60 ml/min/1.73 sqM) Glucose 128 H (74-99) mg/dL Calcium 9.2 (8.4-10.2) mg/dL Total Bilirubin 1.0 (0.2-1.3) mg/dL AST 25 (14-36) U/L ALT 24 (4-34) U/L Alkaline Phosphatase 91 (38-126) U/L Troponin I (0.000-0.034) ng/mL Total Protein 7.3 (6.3-8.2) g/dL Albumin 3.8 (3.5-5.0) g/dL Urine Color Colorless Urine Appearance Clear (Clear) Urine pH 8.0 (5.0-8.0) Ur Specific Peever 1.016 (1.001-1.035) Urine Protein Negative (Negative) Urine Glucose (UA) Negative (Negative) Urine Ketones Negative (Negative) Urine Blood Negative (Negative) Urine Nitrite Negative (Negative) Urine Bilirubin Negative (Negative) Urine Urobilinogen <2.0 (<2.0) mg/dL Ur Leukocyte Esterase Negative (Negative) 08/18/23 Range/Units 08:36 WBC (3.8-10.6) k/uL RBC (3.80-5.40) m/uL Hgb (11.4-16.0) gm/dL Hct (34.0-46.0) % MCV (80.0-100.0) fL MCH (25.0-35.0) pg MCHC (31.0-37.0) g/dL RDW (11.5-15.5) % Plt Count (150-450) k/uL MPV Neutrophils % % Lymphocytes % % Monocytes % % Eosinophils % % Basophils % % Neutrophils # (1.3-7.7) k/uL Lymphocytes # (1.0-4.8) k/uL Monocytes # (0-1.0) k/uL Eosinophils # (0-0.7) k/uL Basophils # (0-0.2) k/uL Macrocytosis Sodium (137-145) mmol/L Potassium (3.5-5.1) mmol/L Chloride (98-107) mmol/L Carbon Dioxide (22-30) mmol/L Anion Gap mmol/L BUN (7-17) mg/dL Creatinine (0.52-1.04) mg/dL Est GFR (CKD-EPI)AfAm (>60 ml/min/1.73 sqM) Est GFR (CKD-EPI)NonAf (>60 ml/min/1.73 sqM) Glucose (74-99) mg/dL Calcium (8.4-10.2) mg/dL Total Bilirubin (0.2-1.3) mg/dL AST (14-36) U/L ALT (4-34) U/L Alkaline Phosphatase (38-126) U/L Troponin I <0.012 (0.000-0.034) ng/mL Total Protein (6.3-8.2) g/dL Albumin (3.5-5.0) g/dL Urine Color Urine Appearance (Clear) Urine pH (5.0-8.0) Ur Specific [place] (1.001-1.035) Urine Protein (Negative) Urine Glucose (UA) (Negative) Urine Ketones (Negative) Urine Blood (Negative) Urine Nitrite (Negative) Urine Bilirubin (Negative) Urine Urobilinogen (<2.0) mg/dL Ur Leukocyte Esterase (Negative) Disposition Clinical Impression: Vertigo Disposition: HOME SELF-CARE Condition: Stable Instructions (If sedation given, give patient instructions): Vertigo (ED) Additional Instructions: Take the Valium as needed for vertigo up to 3 times a day. If you have persistent symptoms past 48 hours, follow-up with your primary care doctor or return to the emergency department Prescriptions: diazePAM [Valium] 5 mg PO Q8H PRN 3 Days #9 tab PRN Reason: Vertigo Ondansetron [Zofran] 4 mg PO Q8HR PRN #20 tab PRN Reason: Nausea Is patient prescribed a controlled substance at d/c from ED?: Yes When asked, does pt state using other controlled substances?: No If prescribed controlled substance>3 days was MAPS reviewed?: Prescribed <3 Days Referrals: Dank Damon MD [Primary Care Provider] - 1-2 days Time of Disposition: 12:43
[2023-08-18] MEDS: diazePAM 5 MG TAB PO STA (10:15)
[2023-08-18] MEDS: ACETAMINOPHEN TAB 500 MG TAB PO STA (11:54)
[2023-08-18 13:24] VITALS: BP 149/81; PULSE 64; RESP 18; TEMP 97.5
== END 2023-08-18 13:02 | disposition home or self-care (01) ==
LOC: EC 08:16
DX: R42 Dizziness and giddiness (principal); R00.1 Bradycardia, unspecified
CPT/HCPCS: 99285; 96374; 96361 ×2; 36415; 93005; 80053; 84484; 85025; 81003; J2405

== ENCOUNTER 2024-02-02 07:41 | Day surgery (SDC) | payer MEDICARE ==
[~2024-02-02 07:41] MED LIST changes: -HEPARIN SODIUM,PORCINE/PF 5,000 UNIT/0.5 ML SYRINGE SQ PRN; -HYDROmorphone 0.5 MG/0.5 ML SYRINGE IVP PRN; -LACTATED RINGERS 1,000 ML IV SCH; +LIDOCAINE 1% (10MG/ML) FOR IV START INTRADERMA PRN; -ONDANSETRON 4 MG/2 ML VIAL IVP ONE; -Pre Op ABX Message 1 EACH MISC MISCELLANE ONE; -fentaNYL (PF) 50 MCG/ML 2 ML AMP IV PRN
--- NOTE | 2024-02-02 08:06 | P.GSHP ---
History of Present Illness H&P Date: 02/02/24 CHIEF COMPLAINT: Colon screen HISTORY OF PRESENT ILLNESS: The patient is a 73-year-old female who presents for colon screen. Lower endoscopy was offered for further evaluation and management. PAST MEDICAL HISTORY: Please see list. PAST SURGICAL HISTORY: Please see list. MEDICATIONS: Please see list. ALLERGIES: Please see list. SOCIAL HISTORY: No illicit drug use FAMILY HISTORY: No reports of Crohn disease or ulcerative colitis. REVIEW OF ORGAN SYSTEMS: CONSTITUTIONAL: No reports of fevers or chills. PHYSICAL EXAM: VITAL SIGNS: Stable GENERAL: Well-developed pleasant in no acute distress. HEENT: No scleral icterus. Extraocular movements grossly intact. Moist buccal mucosa. NECK: Supple without lymphadenopathy. CHEST: Unlabored respirations. Equal bilateral excursions. CARDIOVASCULAR: Regular rate and rhythm. Distal 2+ pulses. ABDOMEN: Soft, nontender, nondistended. MUSCULOSKELETAL: No clubbing, cyanosis, or edema. ASSESSMENT: 1. Colon screen. PLAN: 1. Recommend proceeding with a lower endoscopy Past Medical History Past Medical History: Cancer, Sleep Apnea/CPAP/BIPAP Additional Past Medical History / Comment(s): Uterine CA 2006, diverticulitis, has cpap, swelling in ankles. hx polyps History of Any Multi-Drug Resistant Organisms: None Reported Past Surgical History: Cholecystectomy, Hernia Repair, Hysterectomy, Orthopedic Surgery Additional Past Surgical History / Comment(s): Left lower leg surgery with metal plate, lft hand ganglion cyst, colonoscopy Past Anesthesia/Blood Transfusion Reactions: No Reported Reaction Smoking Status: Never smoker - Past Family History Mother History Unknown: Yes Additional Family Medical History / Comment(s): Asthma, bladder disease. grandmother colon cancer Father Family Medical History: Cancer Additional Family Medical History / Comment(s): bladder cancer Brother(s) Family Medical History: Pulmonary Embolus Medications and Allergies Home Medications Medication Instructions Recorded Confirmed Type Ondansetron [Zofran] 4 mg PO Q8HR PRN #20 tab 08/18/23 02/02/24 Rx diazePAM [Valium] 5 mg PO Q8H PRN 3 Days #9 tab 08/18/23 02/02/24 Rx Furosemide [Lasix] 10 mg PO DAILY 01/28/24 02/02/24 History Allergies Allergy/AdvReac Type Severity Reaction Status Date / Time No Known Allergies Allergy Verified 02/02/24 07:57
[2024-02-02 08:08] VITALS: TEMP 97.3
[2024-02-02] MEDS: LACTATED RINGERS 1,000 ML IV SCH (08:11)
[2024-02-02] MEDS: IV FLUID CONTINUATION 1,000 ML IV ONE ×2 (08:11→08:30)
[2024-02-02] MEDS ORDERED: PROPOFOL 10 MG/ML 20 ML VIAL IV ONE (08:30)
--- NOTE | 2024-02-02 09:07 | P.PCN ---
Date of Procedure: 02/02/24 Description of Procedure: PREOPERATIVE DIAGNOSIS: Colonoscopy screening. Morbid obesity due to excess calories, BMI 56.9 POSTOPERATIVE DIAGNOSIS: Colonoscopy screening. Diverticulosis, severe OPERATION: Colonoscopy to the cecum, ileocecal valve SURGEON: Wendy Perez MD. ANESTHESIA: MAC. INDICATIONS: The patient is a 73-year-old female who presents for colonoscopy screening. Benefits and risks were described and informed consent was obtained. DESCRIPTION OF PROCEDURE: The patient had undergone GoLytely prep. The patient had been brought into the operating room and laid in the left lateral decubitus position. After adequate intravenous sedation, the rectum was examined with 2% lidocaine jelly. No external hemorrhoids were encountered. The rectal tone was within normal limits. No lesions were palpated in the rectal vault. An Olympus colonoscope was advanced until the cecum, ileocecal valve and appendiceal orifice were clearly viewed. The prep was fair with limited view of the mucosa and occasional semisolid stool. Severe sigmoid diverticulosis with scattered diverticulosis was encountered. No large colonic polyps were found. No evidence of focal colitis was found. Retroflexion of the scope demonstrated grade 2 internal hemorrhoids without active bleeding or inflammation. The colon was desufflated. The patient had tolerated the procedure well. Withdrawal time was over 6 minutes. FINDINGS: Aronchick preparation quality scale 3 (1-5) Internal hemorrhoids, grade 2 External prolapsed hemorrhoids, grade 2 No arteriovenous malformations. No large adenomatous polyps. No focal colitis. Severe sigmoid diverticulosis with pandiverticulosis, moderate Redundant sigmoid colon requiring abdominal wall pressure RECOMMENDATIONS: Lower endoscopy in 3 years due to limited prep, 2026 Plan - Discharge Summary Discharge Rx Participant: No New Discharge Prescriptions: Continue diazePAM [Valium] 5 mg PO Q8H PRN 3 Days #9 tab PRN Reason: Vertigo Ondansetron [Zofran] 4 mg PO Q8HR PRN #20 tab PRN Reason: Nausea Furosemide [Lasix] 10 mg PO DAILY Discharge Medication List Ondansetron [Zofran] 4 mg PO Q8HR PRN #20 tab 08/18/23 [Rx] diazePAM [Valium] 5 mg PO Q8H PRN 3 Days #9 tab 08/18/23 [Rx] Furosemide [Lasix] 10 mg PO DAILY 01/28/24 [History] Follow up Appointment(s)/Referral(s): Wendy Perez MD [STAFF PHYSICIAN] - As Needed Patient Instructions/Handouts: Diverticulosis Diet (GEN) Activity/Diet/Wound Care/Special Instructions: Repeat colonoscopy in 3 years, 2026. Recommend extended bowel prep Discharge Disposition: HOME SELF-CARE
[2024-02-02 09:24] VITALS: BP 148/85; PULSE 77; RESP 18
== END 2024-02-02 10:04 | disposition home or self-care (01) ==
LOC: ORWHC2ENDO 07:41
PROVIDERS: ATTEND Surgery Plastic and Reconstructive Surgery
DX: Z12.11 Encounter for screening for malignant neoplasm of colon (principal); K57.30 Diverticulosis of large intestine without perforation or abscess without bleeding; G47.33 Obstructive sleep apnea (adult) (pediatric); F17.200 Nicotine dependence, unspecified, uncomplicated; E66.01 Morbid (severe) obesity due to excess calories; Z68.43 Body mass index [BMI] 50.0-59.9, adult; Z86.010 Personal history of colon polyps; Z80.0 Family history of malignant neoplasm of digestive organs; Z85.42 Personal history of malignant neoplasm of other parts of uterus; Z90.49 Acquired absence of other specified parts of digestive tract; Z98.890 Other specified postprocedural states; Z79.899 Other long term (current) drug therapy